=== PATIENT | male | born 1955 | race Hispanic/Latino ===

== ENCOUNTER 2022-09-26 14:00 | Emergency (ER) | payer OTHER, SELFPAY ==
[~2022-09-26] VITALS: Ht 167.6 cm; Wt 77.2 kg
[~2022-09-26 14:00] MED LIST: EZET-77 PO; SUCR1TAB2 PO
[2022-09-26 15:05] VITALS: BP 136/62
[2022-09-26] MEDS ORDERED: CEPH500B PO (16:47)
== END 2022-09-26 16:52 | disposition home or self-care (01) ==
LOC: EDH 14:00
DX: N49.2 Inflammatory disorders of scrotum (principal); E78.00 Pure hypercholesterolemia, unspecified
CPT/HCPCS: 76870

== ENCOUNTER 2025-07-08 08:33 | Inpatient (IN) | payer SELFPAY ==
[2025-07-08] VITALS (11 sets, daily range): BP systolic 93–154; BP diastolic 46–66; PULSE 44–86; RESP 16–20; TEMP 96.7–97.9; O2SAT 93–100
[~2025-07-08] VITALS: Ht 165.1 cm; Wt 44.2 kg
[~2025-07-08 08:33] MED LIST changes: +AMOX1TAB16 PO; +CHOL500051 PO; +CYAN1TAB68 SL; +DILT60TA3 PO; +DONE10TA43 PO; -EZET-77 PO; +FOLI0.4T6 PO; +MEMA10TA21 PO; +ROSU40TA88 PO; -SUCR1TAB2 PO; +THIA100T75 PO
[2025-07-08 09:20] LABS: IMMATURE GRANULOCYTE ABSOLUTE 0.04 K/uL (0-1); NUCLEATED RED BLOOD CELLS 0.0 % (0.0-0.19); PLATELET COUNT (AUTO) 237 K/uL (130-400); RED BLOOD CELL COUNT(AUTO) 4.53 MIL/uL (4.50-6.20); RED CELL DISTRIBUTION WIDTH 14.4 % (11.0-15.5); WHITE BLOOD COUNT (AUTO) 12.2 K/uL (4.8-10.8)
[2025-07-08 09:26] LABS: CREATININE 0.7 mg/dL (0.5-1.3); GLOMERULAR FILTR. RATE CALC 99.0 mL/min (>90); GLUCOSE,RANDOM 131.0 mg/dL (70-105); SODIUM SERUM 134.0 mmol/L (136-145); UREA NITROGEN, BLOOD 8.0 mg/dL (7-18)
[2025-07-08 09:30] LABS: ASPARTATE AMINOTRANSFERASE 25.0 U/L (10-37); CREATINE KINASE, TOTAL 55.0 U/L (21-232); TOTAL PROTEIN, SERUM 8.2 g/dL (6.0-8.3)
--- NOTE | 2025-07-08 09:35 | ERN ---
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 History was given by his daughter. Patient was brought to the ED with complaint of fever and congestion. He was noticed to have blood in sputum this morning. His symptoms began on June 25 and he was initially treated with Levaquin which transiently improved the symptoms. But patient became febrile again several days ago which was associated with productive cough and congestion. Severity: moderate Associated Symptoms: cough, fever/chills Allergies: Coded Allergies: No Known Allergies (Unverified Allergy, Unknown, 11/09/15) Home Meds Active Scripts Amoxicillin/Potassium Clav (Amox Tr-K Clv 875-125 mg Tab) 875 Mg-125 Mg Tablet, 1 EACH PO BID, #14 TAB Prov:MARBELLA HDZ MUSICAL INSTRUMENT MECHANIC 03/20/24 Diltiazem HCl (Diltiazem HCl) 60 Mg Tablet, 30 MG PO Q6H, #60 TAB Prov:MARBELLA HDZ MUSICAL INSTRUMENT MECHANIC 03/20/24 Reported Medications Rosuvastatin Calcium (Rosuvastatin Calcium) 40 Mg Tablet, 40 MG PO DAILY, TAB 03/18/24 Folic Acid (Folic Acid) 0.4 Mg Tablet, 1000 MCG PO DAILY, TAB 03/18/24 Memantine HCl (Memantine HCl) 10 Mg Tablet, 10 MG PO BID, TAB 03/18/24 Cyanocobalamin/Cobamamide (Vitamin B-12 5,000 Mcg Tab Sl) 5,000 Mcg-100 Mcg Tab.subl, 1 EACH SL DAILY, TAB.SL 03/18/24 Thiamine Mononitrate (Vitamin B-1) 100 Mg Tablet, 100 MG PO DAILY, TAB 03/18/24 Cholecalciferol (Vitamin D3) (Vitamin D3) 125 Mcg (5000 Unit) Capsule, 125 MCG PO QWEEK, CAP 03/18/24 Donepezil HCl (Donepezil HCl) 10 Mg Tablet, 10 MG PO DAILY, TAB 03/18/24 Past Medical History Past Medical History: Cancer, High Cholesterol Past Surgical History: Other Surgical History Other: PROSTATE SX Social History Social History: Other Constitutional: (+) fever, (+) malaise EENTM: (+) nose congestion Respiratory: (+) cough Cardiovascular: (-) chest pain, (-) edema, (-) palpitations, (-) syncope, (-) dyspnea on exertion, (-) other documentation Gastrointestinal/Abdominal: (+) constipation Genitourinary: (-) penile discharge, (-) dysuria, (-) frequency, (-) hematuria, (-) pain, (-) other documentation Musculoskeletal: (-) Neck pain, (-) back pain, (-) Flank Pain, (-) joint pain, (-) joint swelling, (-) muscle pain, (-) muscle stiffness, (-) gout, (-) other documentation Skin: (-) laceration, (-) contusion, (-) abrasion, (-) abscess, (-) rash, (-) change in color, (-) change in hair, (-) change in nails, (-) diaphoresis, (-) dryness, (-) other documentation Neuro: (-) altered mental status, (-) headache, (-) syncope, (-) paralysis, (-) numbness, (-) seizure, (-) pre-existing deficit, (-) tremors, (-) weakness, (-) dizziness, (-) slurred speech, (-) vertigo, (-) other documentation Psych: (-) depression, (-) suicidal ideation, (-) anxiety, (-) emotional problems, (-) auditory hallucinations, (-) visual hallucinations Physical Exam General Appearance: (+) no apparent distress, (+) thin Orientation: (+) alert, (+) oriented x 3 Ear, Nose, Throat: (+) normal ENT inspection Neck: (+) normal inspection, (+) supple, (+) full range of motion Respiratory: (+) chest non-tender, (+) decreased breath sounds Vascular: (+) no edema Gastrointestinal: (+) soft, (+) non-tender Extremities: (+) normal range of motion, (+) non-tender Skin: (+) normal color Results Laboratory and Microbiology Lab and Micro Result Laboratory Tests Test 07/08/25 08:50 07/08/25 09:22 07/08/25 09:36 White Blood Count 12.2 K/uL (4.8-10.8) H Red Blood Count 4.53 MIL/uL (4.50-6.20) Hemoglobin 14.2 g/dL (14.0-18.0) Hematocrit 42.4 % (42-54) Mean Corpuscular Volume 93.6 fL (79-99) Mean Corpuscular Hemoglobin 31.3 pg (27.0-33.0) Mean Corpuscular Hemoglobin Concent 33.5 g/dL (32.0-36.0) Red Cell Distribution Width 14.4 % (11.0-15.5) Platelet Count 237 K/uL (130-400) Mean Platelet Volume 10.5 fL (7.5-10.5) Immature Granulocyte % (Auto) 0.3 % (0-1) Neutrophils (%) (Auto) 79.6 % (40.0-77.0) H Lymphocytes (%) (Auto) 13.7 % (21.0-51.0) L Monocytes (%) (Auto) 6.0 % (3.0-13.0) Eosinophils (%) (Auto) 0.2 % (0.0-8.0) Basophils (%) (Auto) 0.2 % (0.0-5.0) Neutrophils # (Auto) 9.7 K/uL (1.8-7.7) H Lymphocytes # (Auto) 1.7 K/uL (1.0-4.8) Monocytes # (Auto) 0.7 K/uL (0.1-1.0) Eosinophils # (Auto) 0.03 K/uL (0.00-0.70) Basophils # (Auto) 0.02 K/uL (0.00-0.20) Absolute Immature Granulocyte (auto 0.04 K/uL (0-1) Nucleated Red Blood Cells 0.0 % (0.0-0.19) Sodium Level 134 mmol/L (136-145) L Potassium Level 3.6 mmol/L (3.5-5.1) Chloride Level 98 mmol/L (101-111) L Carbon Dioxide Level 30 mmol/L (21-32) Blood Urea Nitrogen 8 mg/dL (7-18) Creatinine 0.7 mg/dL (0.5-1.3) Glomerular Filtration Rate Calc 99 mL/min (>90) Random Glucose 131 mg/dL (70-105) H Lactic Acid Level 1.6 mmol/L (0.8-2.5) Total Calcium 9.6 mg/dL (8.5-10.1) Total Bilirubin 0.9 mg/dL (0.2-1.0) Aspartate Amino Transf (AST/SGOT) 25 U/L (10-37) Alanine Aminotransferase (ALT/SGPT) 33 U/L (12-78) Alkaline Phosphatase 125 U/L (50-136) Total Creatine Kinase 55 U/L (21-232) # Troponin I High Sensitivity 9 ng/L (4-75) B-Type Natriuretic Peptide 57 pg/mL (0-100) Total Protein 8.2 g/dL (6.0-8.3) Albumin 3.2 g/dL (3.5-5.0) L Procalcitonin 0.23 ng/mL (0.05-0.5) Influenza Type A Antigen Negative For Type A Influenza Type B Antigen Negative For Type B SARS-CoV-2 Antigen (Rapid) PRESUMPTIVE NEGATIVE Urine Color YELLOW (YELLOW) Urine Appearance CLOUDY (CLEAR) H Urine pH 7.0 (5.0-8.0) Urine Specific [place] 1.015 (1.001-1.031) Urine Protein NEGATIVE mg/dL (NEGATIVE) Urine Glucose (UA) NEGATIVE mg/dL (NEGATIVE) Urine Ketones NEGATIVE mg/dL (NEGATIVE) Urine Occult Blood MODERATE (NEGATIVE) H Urine Nitrate NEGATIVE (NEGATIVE) Urine Bilirubin NEGATIVE mg/dL (NEGATIVE) Urine Urobilinogen 0.2 mg/dL (0.2-1.0) Urine Leukocyte Esterase NEGATIVE Nicholas/uL Urine RBC 26-50 /HPF (0-1) H Urine WBC 2-5 /HPF (0-1) H Urine Bacteria RARE /HPF (None Seen) MDM Differential diagnosis: Complicated community-acquired pneumonia, aspiration pneumonia, lung abscess This patient is a 69-year-old gentleman who was brought to the ED with complaint of fever and congestion. He was noticed to have blood in sputum this morning. His symptoms began on June 25 and he was initially treated with Levaquin which transiently improved the symptoms. But patient became febrile again several days ago which was associated with productive cough and congestion. In the ED, chest x-ray was done which showed opacities in the left lung. It is being followed by CT chest without contrast. CBC with differential was taken which showed mild leukocytosis. Comprehensive metabolic panel was also taken. Procalcitonin and lactic acid were unremarkable. Trop I and BNP were negative. Urinalysis showed positive occult blood with negative leukocyte esterase. Blood culture sample has been drawn. Patient was started on sepsis protocol with 30 mL/kg normal saline. He was also started on cefepime and azithromycin for coverage of complicated community- acquired pneumonia with failed outpatient therapy. ED Course Orders Procedure Category Date Status Time Chest 1vw RAD 07/08/25 Resulted 08:52 Blood Cult MEHRDAD 07/08/25 In Process 08:52 B-Type Natriuretic LAB 07/08/25 Complete Peptide 08:52 Lactic Acid LAB 07/08/25 Complete 08:52 Procalcitonin LAB 07/08/25 Complete 08:52 Cbc With Differential LAB 07/08/25 Complete 08:52 Comprehensive LAB 07/08/25 Complete Metabolic Panel 08:52 Urinalysis Profile LAB 07/08/25 Complete 08:52 0.9%Nacl 1000ml (Ns PHA 07/08/25 In Process 1000ml) 09:00 Creatine Kinase, Total LAB 07/08/25 Complete 08:52 Troponin I High LAB 07/08/25 Complete Sensitivity 08:52 Covid19 (Sars Antigen LAB 07/08/25 Complete Rapid) 09:12 Influenza Type A & B, LAB 07/08/25 Complete Rapid 09:12 12 Lead Ekg Tracing- EKG 07/08/25 Complete Technical 09:14 Acetaminophen 500mg PHA 07/08/25 In Process Tab (Tylenol 500mg T 09:30 Ct Chest W/O Contrast CT 07/08/25 Resulted 09:43 Cefepime Hcl 1 Gm PHA 07/08/25 Complete Vial (Maxipime 1 Gm Vi 10:00 Azithromycin 500mg+Ns PHA 07/08/25 Complete 250ml (Azithromyci 11:00 Vital Signs(Adult CPOE 07/08/25 Transmitted Hospitalist) 10:54 Nurse To Enter Home CPOE 07/08/25 Transmitted Medication 10:54 Admit Orders ADM 07/08/25 Transmitted 10:54 Telemetry Monitoring CPOE 07/08/25 Transmitted 10:54 Nothing By Mouth DIET 07/08/25 Transmitted Lunch Famotidine 20mg Vial PHA 07/08/25 In Process (Pepcid 20mg Vial) 21:00 Zosyn 3.375gm+Ns 50ml PHA 07/08/25 In Process (Zosyn 3.375gm+Ns 13:00 0.9%Nacl 50ml (Ns PHA 07/08/25 Complete 50ml) 13:00 Procalcitonin LAB 07/08/25 Logged 10:54 Crp Quantitative LAB 07/08/25 Logged 10:54 Thyroid Stimulating LAB 07/08/25 Logged Hormone 10:54 Hemoglobin A1c LAB 07/08/25 Logged 10:54 *Nursing CPOE 07/08/25 Transmitted Communication: 10:[address] 07/08/25 Transmitted Order 10:54 Aspiration Precautions CPOE 07/08/25 Transmitted 10:54 Fall Precautions CPOE 07/08/25 Transmitted 10:54 Lactic Acid LAB 07/08/25 Logged 10:54 Midodrine Hcl 5 Mg PHA 07/08/25 Complete Tablet (Proamatine 5 11:00 Norepinephrin 4mg/Ns PHA 07/08/25 In Process 250ml (Levophed 4mg 11:00 Critcal Care Consult CONPHYSVC 07/08/25 Transmitted 10:54 Respiratory Cult MEHRDAD 07/08/25 Logged W/Gram Stain 10:54 Acetaminophen 500mg PHA 07/08/25 In Process Tab (Tylenol 500mg T 11:[address] 07/08/25 Transmitted Order 10:54 Transfer To: CPOE 07/08/25 Transmitted 11:02 Azithromycin 500mg+Ns PHA 07/09/25 In Process 250ml (Azithromyci 11:00 Current Medications Medications (Trade) Dose Ordered Sig/Sae Route PRN Reason Start Time Stop Time Status Last Admin Dose Admin Acetaminophen (TYLenol 500MG TAB) 500 mg Q6H PRN PO FEVER/HEADACHE 07/08/25 09:30 08/07/25 09:29 07/08/25 09:47 Acetaminophen (TYLenol 500MG TAB) 500 mg Q6H PRN PO MILD PAIN (1-3) 07/08/25 11:00 08/07/25 10:59 Azithromycin 250 ml @ 250 mls/hr Q24H IVPB 07/08/25 11:00 07/08/25 11:05 DC Azithromycin 250 ml @ 250 mls/hr Q24H IVPB 07/09/25 11:00 07/19/25 10:59 Cefepime HCl (MAXipime 1 GM vial) 1 gm Q12H IVPB 07/08/25 10:00 07/08/25 11:02 DC 07/08/25 10:29 Famotidine (Pepcid 20mg Vial) 20 mg BID IV 07/08/25 21:00 08/07/25 20:59 Midodrine (PROAMatine 5 MG TABLET) 5 mg ONCE ONCE PO 07/08/25 11:00 07/08/25 11:03 DC Norepinephrine 250 ml @ 21.45 mls/ hr PROTOCOL IV 07/08/25 11:00 08/07/25 10:59 Piperacillin Sod/ Tazobactam Sod (Zosyn 3.375gm+NS 50ml) 3.375 gm Q8H IVPB 07/08/25 13:00 07/18/25 12:59 Sodium Chloride 1,716 ml @ 572 mls/hr ONCE ONCE IV 07/08/25 09:00 07/08/25 11:59 07/08/25 09:47 Sodium Chloride (NS 50ml) 50 ml AD IV 07/08/25 13:00 07/08/25 11:02 DC Vital Signs Date Time Temp Pulse Resp B/P (MAP) Pulse Ox O2 Delivery O2 Flow Rate FiO2 07/08/25 09:47 100.0 07/08/25 08:52 100.0 97 20 107/84 95 Room Air* 0 21 07/08/25 08:35 98.4 52 16 102/43 95 Room Air DX & DISP Disposition: Inpatient Decision to Admit Date: Jul 08, 2025 Decision to Admit Time: 10:30 Departure Impression: Primary Impression: Community acquired pneumonia Condition: Stable Referrals: WES [facility]AV[facility] 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 I have reviewed and personally made and approve the management plan that is documented in the notes by myself with CHANA/resident. I acknowledged full responsibility for the patient's management plan. SHEILA GONZALEZ MD Jul 08, 2025 09:35 KWESI YAO DO Jul 08, 2025 11:08
[2025-07-08 09:47] LABS: COVID19 (SARS ANTIGEN RAPID) PRESUMPTIVE NEGATIVE (NEGATIVE); INFLUENZA TYPE A Negative For Type A (NEGATIVE); INFLUENZA TYPE B Negative For Type B (NEGATIVE)
[2025-07-08] MEDS: [UNRECOGNIZED DRUG - OTHER] IV ONE (09:47)
[2025-07-08 09:48] LABS: APPEARANCE,URINE CLOUDY (CLEAR); GLUCOSE, URINE (UA) NEGATIVE (NEGATIVE); LEUKOCYTE ESTERASE ,URINE NEGATIVE Leu/uL (NEGATIVE); NITRATE,URINE NEGATIVE (NEGATIVE); OCCULT BLOOD,URINE MODERATE (NEGATIVE)
--- NOTE | 2025-07-08 09:49 | EKG ---
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
[2025-07-08 09:53] LABS: ADD UA MICROSCOPIC YES
--- NOTE | 2025-07-08 10:38 | HMCIMG ---
EXAM: CT Chest Without IV contrast. CLINICAL HISTORY: Left lung opacities on chest x-ray TECHNIQUE: Axial computed tomography images of the chest without intravenous contrast. COMPARISON: None provided. FINDINGS: LUNGS: Tree-in-bud opacities throughout the right lung. Right lower lobe consolidations. Overall findings are suspicious for multifocal pneumonia. Follow-up chest radiograph in 6 weeks after appropriate clinical treatment recommended to ensure resolution. PLEURAL SPACES: No evidence of pneumothorax. No pleural effusion. HEART: No cardiomegaly. No significant pericardial effusion. LYMPH NODES: No lymphadenopathy is evident. UPPER ABDOMEN: The upper abdominal solid organs are unremarkable. BONES: No acute osseous abnormality. IMPRESSION: 1. Tree-in-bud opacities throughout the right lung and right lower lobe consolidations, suspicious for multifocal pneumonia. 2. Follow-up chest radiograph in 6 weeks after appropriate clinical treatment recommended to ensure resolution. /David
--- NOTE | 2025-07-08 10:41 | HMCIMG ---
EXAM: CR Chest, 1 View. CLINICAL HISTORY: Fever with Cough and congestion COMPARISON: 03/17/24 15:42 EDT CR - CHEST 1VW FINDINGS: LUNGS: Mild pulmonary emphysematous changes. There is asymmetric diffuse density throughout the left mid and lower lung when compared to the right which may represent an acute infectious process. PLEURAL SPACES: No pleural effusion or pneumothorax. MEDIASTINUM: Cardiac size and mediastinal contours within normal limits. BONES: No acute osseous abnormality. IMPRESSION: Pulmonary emphysema. Left lung asymmetric opacity which may acute infectious process. Clinically correlate. PA and lateral views of the chest or CT of the chest may provide additional diagnostic information. /[place]
[2025-07-08] MEDS ORDERED: AZITHROMYCIN 500MG+NS 250ML 250 ML IVPB SCH (11:00)
[2025-07-08] MEDS ORDERED: NOREPINEPHRIN 4MG/NS 250ML 250 ML IV SCH (11:00)
--- NOTE | 2025-07-08 11:03 | HP ---
[facility] HISTORY AND PHYSICAL Date of Service: Jul 08, 2025 Time of Service: 11:03 HISTORY OF PRESENT ILLNESS: 69-year-old Male with past medical history of dementia, hyperlipidemia presented to the hospital secondary to fever, congestion. History is mainly obtained from daughter who is present at bedside. Patient's daughter noted that she has been having cough for the past two weeks. He was seen by his primary care provider who treated him for pneumonia with Levaquin. The patient took Levaquin for the past seven days. The patient has been mostly drinking fluids at home. He is not eating solids much at home. Additionally he needs help with his eating. The patient has had progressive decline in his cognition and is being followed by Neurology as outpatient. He sees a neurologist in [facility] in [place]. The patient has episodes of aphasia at home and per daughter sometimes he is also able to speak. He has been having regular bowel movements at home but does have episodes of constipation. Daughter denied any diarrhea, chest pain, nausea, vomiting. Denied any falls, syncopal episode. History is limited since patient is not able to participate in conversations. Labs in the ED were notable for white count of 12.2, hemoglobin was 14.2, platelet count was 237 K, sodium was 134, potassium 3.6, was 0.7, blood glucose was 131, lactic acid was 1.6, troponin was negative x1 The patient underwent a CT chest which showed tree-in-bud opacities throughout the right lung and right lower lobe consolidation concerning for pneumonia. Patient's temperature on presentation was 98.1, heart rate was in the 50s, blood pressure was 124/66, patient was saturating 98% on room air, respiratory rate was 20 When seen at bedside patient's systolics were noted to be in the 90s with dailey tolic in the 30s. The patient's blood pressure subsequently improved with systolics in the 110s after fluid were given. Patient in the ED received cefepime, azithromycin. The patient also received normal saline for fluid bolus REVIEW OF SYSTEMS CONSTITUTIONAL: Denies chills, or night sweats. No unintentional weight loss reported. Positive fevers NEUROLOGICAL: Denies headache, amaurosis fugax, motor weakness, sensory deficit, vertigo/spinning sensation, gait abnormalities, or tremors. ENT: No hearing loss, otalgia, otorrhea, rhinitis, rhinorrhea, hoarseness, or sore throat. CARDIOVASCULAR: Denies any exertional angina, dyspnea on exertion, orthopnea, paroxysmal nocturnal dyspnea, palpitations, life-threatening arrhythmias, claudication. PULMONARY: Positive for cough, congestion GASTROINTESTINAL: Denies any type of dysphagia to either liquids or solids. Denies nausea, vomiting, pyrosis, early satiety, abdominal pain, diarrhea, constipation, or changes in stool consistency or caliber. Denies coffee-ground emesis, hematemesis, hematochezia, or melanotic stools. GENITOURINARY: Denies frequency, urgency, nocturia, hematuria or incontinence (Storage/Irritative symptoms.) Low urinary stream, straining to void, urinary intermittency or hesitancy, splitting of the voiding stream, terminal dribbling. ENDOCRINOLOGIC: Denies polyuria, polydipsia, polyphagia or heat/cold intolerances. HEMATOLOGIC: Denies thrombophilia/previous clots, or coagulopathy/bleeding disorders. ONCOLOGIC: Denies personal history of malignancy. DERMATOLOGIC: Denies rashes or pruritus. PSYCHIATRIC: Denies any suicidal or homicidal ideation. Denies hallucinations. PAST MEDICAL HISTORY: Hyperlipidemia, dementia, possible prostate cancer PAST SURGICAL HISTORY: History of prostate surgery PAST SOCIAL HISTORY: Denied any smoking, alcohol, drug use. The patient currently lives with his family is who helps him with his ADLs and IADLs FAMILY HISTORY: Denied any pertinent family history Coded Allergies: No Known Allergies (Unverified Allergy, Unknown, 11/09/15) PHYSICAL EXAM GENERAL APPEARANCE: Patient is aphasic. Does not communicate NEUROLOGICAL: Does not follow commands for accurate neurological assessment. Patient does move his upper and lower extremity without issues. HEENT: Face is symmetric. Pupils are equal and reactive. Extraocular movements are intact. NECK: Supple. No JVD. No thyromegaly. No submental, submandibular, pre-/postauricular, occipital or supraclavicular lymphadenopathy. CHEST: Normal chest expansion. No Telemetry. LUNGS: Absence of any rales, rhonchi or any wheezing. CARDIOVASCULAR: Regular. S1 and S2 normal. No appreciable rubs, murmurs or gallops. ABDOMEN: Soft, nontender, and nondistended. There is no rebound, voluntary guarding, or rigidity. : Deferred. No Aguilar. EXTREMITIES: Non-edematous and not cyanotic. No clubbing. Good capillary refill. SKIN: No skin breakdown. Vital Sign (Last 24 Hours) 07/08/25 07/08/25 08:52 09:47 Temp 100.0 Pulse 97 Resp 20 B/P (MAP) 107/84 Pulse Ox 95 O2 Delivery Room Air* O2 Flow Rate 0 FiO2 21 LABS: Laboratory: Test 07/08/25 09:36 07/08/25 09:22 07/08/25 08:50 Range/Units Urine Color YELLOW YELLOW Urine Appearance CLOUDY H CLEAR Urine pH 7.0 5.0-8.0 Urine Specific [place] 1.015 1.001-1.031 Urine Protein NEGATIVE NEGATIVE mg/dL Urine Glucose (UA) NEGATIVE NEGATIVE mg/dL Urine Ketones NEGATIVE NEGATIVE mg/dL Urine Occult Blood MODERATE H NEGATIVE Urine Nitrate NEGATIVE NEGATIVE Urine Bilirubin NEGATIVE NEGATIVE mg/dL Urine Urobilinogen 0.2 0.2-1.0 mg/dL Urine Leukocyte Esterase NEGATIVE NEGATIVE Nicholas/uL Urine RBC 26-50 H 0-1 /HPF Urine WBC 2-5 H 0-1 /HPF Urine Bacteria RARE None Seen /HPF Influenza Type A Antigen Negative For Type A NEGATIVE Influenza Type B Antigen Negative For Type B NEGATIVE SARS-CoV-2 Antigen (Rapid) PRESUMPTIVE NEGATIVE NEGATIVE White Blood Count 12.2 H 4.8-10.8 K/uL Red Blood Count 4.53 4.50-6.20 MIL/uL Hemoglobin 14.2 14.0-18.0 g/dL Hematocrit 42.4 42-54 % Mean Corpuscular Volume 93.6 79-99 fL Mean Corpuscular Hemoglobin 31.3 27.0-33.0 pg Mean Corpuscular Hemoglobin Concent 33.5 32.0-36.0 g/dL Red Cell Distribution Width 14.4 11.0-15.5 % Platelet Count 237 130-400 K/uL Mean Platelet Volume 10.5 7.5-10.5 fL Immature Granulocyte % (Auto) 0.3 0-1 % Neutrophils (%) (Auto) 79.6 H 40.0-77.0 % Lymphocytes (%) (Auto) 13.7 L 21.0-51.0 % Monocytes (%) (Auto) 6.0 3.0-13.0 % Eosinophils (%) (Auto) 0.2 0.0-8.0 % Basophils (%) (Auto) 0.2 0.0-5.0 % Neutrophils # (Auto) 9.7 H 1.8-7.7 K/uL Lymphocytes # (Auto) 1.7 1.0-4.8 K/uL Monocytes # (Auto) 0.7 0.1-1.0 K/uL Eosinophils # (Auto) 0.03 0.00-0.70 K/uL Basophils # (Auto) 0.02 0.00-0.20 K/uL Absolute Immature Granulocyte (auto 0.04 0-1 K/uL Nucleated Red Blood Cells 0.0 0.0-0.19 % Sodium Level 134 L 136-145 mmol/L Potassium Level 3.6 3.5-5.1 mmol/L Chloride Level 98 L 101-111 mmol/L Carbon Dioxide Level 30 21-32 mmol/L Blood Urea Nitrogen 8 7-18 mg/dL Creatinine 0.7 0.5-1.3 mg/dL Glomerular Filtration Rate Calc 99 >90 mL/min Random Glucose 131 H 70-105 mg/dL Lactic Acid Level 1.6 0.8-2.5 mmol/L Total Calcium 9.6 8.5-10.1 mg/dL Total Bilirubin 0.9 0.2-1.0 mg/dL Aspartate Amino Transf (AST/SGOT) 25 10-37 U/L Alanine Aminotransferase (ALT/SGPT) 33 12-78 U/L Alkaline Phosphatase 125 50-136 U/L Total Creatine Kinase 55 # 21-232 U/L Troponin I High Sensitivity 9 4-75 ng/L B-Type Natriuretic Peptide 57 0-100 pg/mL Total Protein 8.2 6.0-8.3 g/dL Albumin 3.2 L 3.5-5.0 g/dL Procalcitonin 0.23 0.05-0.5 ng/mL Current Medications Medications (Trade) Dose Ordered Sig/Sae Route PRN Reason Start Time Stop Time Status Last Admin Dose Admin Acetaminophen (TYLenol 500MG TAB) 500 mg Q6H PRN PO FEVER/HEADACHE 07/08/25 09:30 08/07/25 09:29 07/08/25 09:47 500 MG Azithromycin 250 ml @ 250 mls/hr Q24H IVPB 07/08/25 11:00 07/18/25 10:59 Cefepime HCl (MAXipime 1 GM vial) 1 gm Q12H IVPB 07/08/25 10:00 07/18/25 09:59 07/08/25 10:29 1 GM DIAGNOSTICS / RADIOLOGY: Chest is concerning for right lower lobe pneumonia ASSESSMENT: Nonresolving multifocal pneumonia in the right lung concerning for aspiration pneumonia Advanced dementia Debility Dehydration Hyperlipidemia History of prostate cancer Hypotension resolved PLAN: - patient to be admitted to [facility] -in reference to nonresolving right lower lobe pneumonia. Patient will be started on Zosyn and azithromycin. We will obtain a sputum sample. We will obtain a speech eval to assess for dysphagia. We will request consultation with pulmonology for help with management. Monitor blood pressure. The patient's case was discussed with pulmonology. -patient to be started on NS for gentle hydration -check for Legionella, Streptococcus pneumoniae, mycoplasma -check procalcitonin, CRP, TSH, hemoglobin A1c -obtain a CT head -obtain home medications which will be reconciled once available -further orders per hospitalization course. Plan Of care was discussed with patient's daughter at bedside. Advanced Care Planning Which of the following were discussed: Hospice care: Yes __ No _x_ Therapeutic options: Yes __ No __ Advance directives: Yes __ No __ Other discussions: Pt is full code Discussed with who?: patient's daughter (Patient, family or surrogates) Voluntary nature of this service was explained to the patient? Yes _x_ No __ Amount of time spent: 25 minutes DADA Bass MD, MD Jul 08, 2025 11:03
[2025-07-08] MEDS: SODIUM CHLORIDE 3% FOR INHALATION 4 ML/AMP VIAL.NEB IH ONE ×3 (11:41→23:13)
--- NOTE | 2025-07-08 12:05 | HMCIMG ---
ABD 1VW REASON: CONSTIPATION FINDINGS: Single image of the abdomen was obtained. Bowel gas pattern is normal. Bones and soft tissues appear unremarkable. There are no abnormal calcifications. There is no evidence of foreign body. There is atherosclerotic change of the abdominal aorta with calcified plaque. IMPRESSION: 1. Nonspecific gas pattern..
[2025-07-08] MEDS: 0.9%NACL 1000ML 1,000 ML IV SCH (12:08)
--- NOTE | 2025-07-08 12:15 | HMCIMG ---
Exam: NONCONTRAST CT BRAIN REASON: confusion, history of dementia . COMPARISON: None. TECHNIQUE: Images are obtained from vertex to the skull base. The exam was performed without IV contrast. FINDINGS: There is normal appearing brain parenchyma. There are no focal mass lesions. There is is no evidence of intracranial hemorrhage or acute stroke. Ventricles and sulci appear normal. Posterior fossa and brainstem structures are unremarkable. Paranasal sinuses and remaining extracranial soft tissues appear normal as well.There is severe global atrophy with periventricular ischemic white matter changes. IMPRESSION: 1. No acute intracranial process. 2. Global atrophy with periventricular ischemic white matter changes CT was performed with one or more following dose reduction techniques: automated exposure control, adjustment of the mA and kv according to patient's size, or use of a iterative reconstruction technique.
[2025-07-08] MEDS ORDERED: MIRT-72 PO (12:25)
--- NOTE | 2025-07-08 12:35 | CONS ---
[facility] CONSULTATION NOTE Date Patient Seen: Jul 08, 2025 Time of Visit: 12:19 Supervising Physician: [Dr. Barbara Klein Reason for Consultation: [ ] Recurrent pneumonia Primary Care Physician: [[facility] Out[facility] Specialists: [ ] Inpatient Consults: [ ] BIS PROBLEM LIST: Recurrent multifocal pneumonia-failed out patient treatment Advanced dementia Hyperlipidemia Calorie deficit malnutrition Nonverbal Functional quad Bed-bound PLAN SUMMARY: Supplemental oxygen as needed Duo nebs every 6 hours as needed Mucomyst 20% 3 mL q 6 x 72 hours Obtain sputum culture Continue Zosyn Continue azithromycin Continue NS at 100 mL an hour Keep NPO ST to evaluate and treat MBSS if warranted Palliative care consult HPI: Mr. Alireza Pineda is a 69 year old male with a past medical history of dementia, hyperlipidemia presented to the emergency room with a chief complaint of fevers, congestion with an onset of several days. Daughter reports she has been having these symptoms for over2 weeks and was evaluated by his primary care provider and diagnosed and treated him for pneumonia with p.o. Levaquin. Daughter reports he was compliant with his oral antibiotics and completed the regimen however his symptoms continued. Patient's daughter reports his cough and fevers progressively worsened therefore she brought him in for further evaluation. The patient has been mostly drinking fluids at home. He is not eating solids much at home. Additionally he needs help with his eating. The patient has had progressive decline in his cognition and is being followed by Neurology as outpatient. He sees a neurologist in [facility] in [place]. The patient has episodes of aphasia at home and per daughter sometimes he is also able to speak. He has been having regular bowel movements at home but does have episodes of constipation. Daughter denied any diarrhea, chest pain, nausea, vomiting. Denied any falls, syncopal episode. History is limited since patient is not able to participate in conversations. Patient is seen laying in his stretcher in the ED accompanied by his daughter. Pt appears to be very weak, frail, ill appearing, debilitated and cachectic. CT scan of the chest was reviewed and shows multifocal pneumonia. Recommend blanquita nue Zosyn 3.375 g IV every 8 hours as well as azithromycin. We will instruct nursing to arrange aggressive pulmonary tolerating. Recommend keep NPO until evaluated by speech therapy and is deemed safe for intake. Discussed code status with the daughter and she reports she will need to confirm with the family however she is leaning towards duo neb resuscitate which I believe is a ppropriate at this time. Recommend palliative care consult. No need for ICU at this time. We will continue to follow up with you. PAST MEDICAL HX: see above PAST SURGICAL HX: noncontributory SOCIAL HISTORY: No tobacco, ETOH, or illicit drug use Coded Allergies: No Known Allergies (Unverified Allergy, Unknown, 11/09/15) REVIEW OF SYSTEMS: 12 point ROS reviewed with patient. Pertinent positives mentioned above. Otherwise negative. PHYSICAL EXAM: GENERAL: 69-year-old weak, cachectic, ill-appearing male awake oriented x 1 HEENT: EOMI, Sclera non icteric, moist mucosa NECK: Supple, no JVD, trachea midline LUNGS: Clear breath sounds bilaterally. No wheezes HEART: Regular rate and rhythm. Normal S1 and S2, without murmurs ABD: Abdomen soft, nontender. Bowel sounds present EXT: No clubbing cyanosis or edema NEURO: Alert and oriented to person, does not follow commands Vital Signs (last 8hr) Date Time Temp Pulse Resp B/P (MAP) Pulse Ox O2 Delivery O2 Flow Rate FiO2 07/08/25 09:47 100.0 07/08/25 08:52 100.0 97 20 107/84 95 Room Air* 0 21 07/08/25 08:35 98.4 52 16 102/43 95 Room Air LABS: Hematology Labs: Test 07/08/25 08:50 Range/Units White Blood Count 12.2 H 4.8-10.8 K/uL Red Blood Count 4.53 4.50-6.20 MIL/uL Hemoglobin 14.2 14.0-18.0 g/dL Hematocrit 42.4 42-54 % Mean Corpuscular Volume 93.6 79-99 fL Mean Corpuscular Hemoglobin 31.3 27.0-33.0 pg Mean Corpuscular Hemoglobin Concent 33.5 32.0-36.0 g/dL Red Cell Distribution Width 14.4 11.0-15.5 % Platelet Count 237 130-400 K/uL Mean Platelet Volume 10.5 7.5-10.5 fL Immature Granulocyte % (Auto) 0.3 0-1 % Neutrophils (%) (Auto) 79.6 H 40.0-77.0 % Lymphocytes (%) (Auto) 13.7 L 21.0-51.0 % Monocytes (%) (Auto) 6.0 3.0-13.0 % Eosinophils (%) (Auto) 0.2 0.0-8.0 % Basophils (%) (Auto) 0.2 0.0-5.0 % Neutrophils # (Auto) 9.7 H 1.8-7.7 K/uL Lymphocytes # (Auto) 1.7 1.0-4.8 K/uL Monocytes # (Auto) 0.7 0.1-1.0 K/uL Eosinophils # (Auto) 0.03 0.00-0.70 K/uL Basophils # (Auto) 0.02 0.00-0.20 K/uL Absolute Immature Granulocyte (auto 0.04 0-1 K/uL Nucleated Red Blood Cells 0.0 0.0-0.19 % Chemistry Labs: Test 07/08/25 11:52 07/08/25 08:50 Range/Units Lactic Acid Level 1.4 0.8-2.5 mmol/L Sodium Level 134 L 136-145 mmol/L Potassium Level 3.6 3.5-5.1 mmol/L Chloride Level 98 L 101-111 mmol/L Carbon Dioxide Level 30 21-32 mmol/L Blood Urea Nitrogen 8 7-18 mg/dL Creatinine 0.7 0.5-1.3 mg/dL Glomerular Filtration Rate Calc 99 >90 mL/min Random Glucose 131 H 70-105 mg/dL Hemoglobin A1c 5.1 4.0-6.0 % Estimated Average Glucose (eAG) 100 70-126 mg/dL Total Calcium 9.6 8.5-10.1 mg/dL Total Bilirubin 0.9 0.2-1.0 mg/dL Aspartate Amino Transf (AST/SGOT) 25 10-37 U/L Alanine Aminotransferase (ALT/SGPT) 33 12-78 U/L Alkaline Phosphatase 125 50-136 U/L Total Creatine Kinase 55 # 21-232 U/L Troponin I High Sensitivity 9 4-75 ng/L B-Type Natriuretic Peptide 57 0-100 pg/mL Total Protein 8.2 6.0-8.3 g/dL Albumin 3.2 L 3.5-5.0 g/dL Procalcitonin 0.23 0.05-0.5 ng/mL DIAGNOSTICS / RADIOLOGY RESULTS: PATIENT: ALIREZA PINEDA MR#: [id number] : 1955 SEX: M AGE: 69 LOCATION: [facility] ORDER 4 STATUS: REG ER REPORT#: [id number] SERVICE REASON: Left lung opacities on chest x-ray ORDERING PHYSICIAN: SHEILA GONZALEZ MD PROCEDURE: CHEST WO - CT CHEST W/O CONTRAST EXAM: CT Chest Without IV contrast. CLINICAL HISTORY: Left lung opacities on chest x-ray TECHNIQUE: Axial computed tomography images of the chest without intravenous contrast. COMPARISON: None provided. FINDINGS: LUNGS: Tree-in-bud opacities throughout the right lung. Right lower lobe consolidations. Overall findings are suspicious for multifocal pneumonia. Follow-up chest radiograph in 6 weeks after appropriate clinical treatment recommended to ensure resolution. PLEURAL SPACES: No evidence of pneumothorax. No pleural effusion. HEART: No cardiomegaly. No significant pericardial effusion. LYMPH NODES: No lymphadenopathy is evident. UPPER ABDOMEN: The upper abdominal solid organs are unremarkable. BONES: No acute osseous abnormality. IMPRESSION: 1. Tree-in-bud opacities throughout the right lung and right lower lobe consolidations, suspicious for multifocal pneumonia. 2. Follow-up chest radiograph in 6 weeks after appropriate clinical treatment recommended to ensure resolution. /[place] DICTATED BY: THERESE WINN MD DATE: 07/08/251136 ELECTRONICALLY SIGNED BY: THERESE WINN MD DATE: 07/08/251136 PLAN NEURO: Minimize central acting medications as possible. Maintain fall precautions, adequate lighting during the day PULMONARY: Supplemental 02 as needed. Maintain aspiration precautions at all times CARDIOVASCULAR: Follow hemodynamics. Vital signs per facility protocol GI & NUTRITION: Continue with nutritional support. Continue stool softeners and laxatives as needed. KIDNEYS & ELECTROLYTES: Strict monitoring of intake, output and overall fluid balance. Avoid nephrotoxic medications to the extent possible. Medications to be dosed according to renal function. Monitor electrolytes and replace as needed ENDOCRINE: Maintain blood glucose between 100-180 at all times. Hypoglycemia protocol in place INFECTIOUS DISEASE: Trend temperature, WBC and procalcitonin level Follow cultures, deescalate antibiotics as soon as possible. Panculture if new onset fever ONCOLOGY/HEMATOLOGY/COAGULATION: Monitor for s/s of bleeding Monitor hemoglobin, coagulation studies as needed SKIN: Pressure ulcer prevention per facility protocol Specialty mattress ORTHO/REHAB: Continue PT/OT Prophylaxis: Continue GI and DVT prophylaxis Code Status: Full Resuscitation. Palliative care consult Disposition: As per attending ATTESTATION BY PHYSICIAN The patient has been seen and evaluated, the case has been discussed with the ELECTRIC CUTTER OPERATOR, I agree with the clinical findings and plan of care. Reynaldo Klein MD,SAL N ELECTRIC CUTTER OPERATOR Jul 08, 2025 12:35
[2025-07-08] MEDS ORDERED: 0.9%NACL 50ML IV SCH (13:00)
--- NOTE | 2025-07-08 13:06 | NUR ---
ATTEMPTED TO CALL REPORT AT THIS TIME; NURSE IS CURRENTLY OUT IN LUNCH.
[2025-07-08] MEDS: ZOSYN 3.375GM +NS 50ML IVPB SCH (15:14)
--- NOTE | 2025-07-08 15:57 | NUR ---
DCP: HOME Pt sleeping, sw spoke to son and daughter in law. Pt lives in mobile home with Ainsley Nayak [phone]. Family assists pt with completing his ADLS as needed, pt uses walker and shower chair. Pt has no HH or HD, family drives to MD appts as needed. PCP is Venus Davenport and uses [facility] for rx services. DCP is home Addendum: 07/08/25 at 1601 by ANGÉLICA GOMEZ SS Amended: Links added.
--- NOTE | 2025-07-08 16:00 | NUR ---
SPEECH NOTE: Pt not appropriate ROUGH RIB GRADER arrived to patient's room; however, patient unable to wake up to participate in evaluation. As per family in room, patient was not able to sleep until now. ROUGH RIB GRADER educated family on risks and consequences of aspiration. ROUGH RIB GRADER will follow up tomorrow. All questions answered. Addendum: 07/08/[address] J[facility] HOLLIS Amended: Links added.
[2025-07-08] MEDS ORDERED: GLUCAGON 1MG KIT 1 MG ML IM PRN (18:30)
[2025-07-08] MEDS ORDERED: DEXTROSE 50%-WATER 50 ML DISP.SYRIN IV PRN (18:30)
--- NOTE | 2025-07-08 18:41 | EKG ---
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
[2025-07-08] MEDS: DEXTROSE 5 % AND 0.9 % NACL 1,000 ML IV SCH (18:53)
--- NOTE | 2025-07-08 20:06 | NUR ---
patient started with afib rvr 130-140 s at @ 1955 paged benchmark answering service not answering will attempt later
[2025-07-08] MEDS: FAMOTIDINE 20MG VIAL IV SCH (21:17)
--- NOTE | 2025-07-08 22:52 | NUR ---
2051 - NABI HANDBOOK WRITER CALLED BACK PT WAS IN AFIB RVR 120-140S SINCE 1944 - CONVERTED TO SINUS NATALI AT 2030 - EKG WAS ABOUT TO BE DONE, NABI CANCELED AND NO ORDERS CONT TO MONITOR, PT IN ED CALM AND PASSIVE AT BEDSIDE IN NO DISTRESS
[2025-07-09] VITALS (15 sets, daily range): BP systolic 111–144; BP diastolic 51–99; PULSE 43–94; RESP 16–19; TEMP 97.3–100.1; O2SAT 98–99
[2025-07-09 05:55] LABS: NUCLEATED RED BLOOD CELLS 0.0 % (0.0-0.19); PLATELET COUNT (AUTO) 171.0 K/uL (130-400); RED BLOOD CELL COUNT(AUTO) 3.96 MIL/uL (4.50-6.20); RED CELL DISTRIBUTION WIDTH 14.6 % (11.0-15.5); WHITE BLOOD COUNT (AUTO) 7.4 K/uL (4.8-10.8)
[2025-07-09 06:12] LABS: CREATININE 0.6 mg/dL (0.5-1.3); GLOMERULAR FILTR. RATE CALC 104.0 mL/min (>90); GLUCOSE,RANDOM 99.0 mg/dL (70-105); PHOSPHORUS 2.6 mg/dL (2.5-4.9); SODIUM SERUM 142.0 mmol/L (136-145); UREA NITROGEN, BLOOD 7.0 mg/dL (7-18)
[2025-07-09] MEDS ORDERED: PoTASSium chloRIDE 20MEQ ER 20 MEQ ERTAB PO PRN (06:30)
[2025-07-09] MEDS: ENOXAPARIN SODIUM 30 MG/0.3 ML SQ SCH (08:52)
[2025-07-09] MEDS ORDERED: COMPOUND IV REFRIGERATED 1 EACH IVSOLN MISC PRN (10:00)
--- NOTE | 2025-07-09 10:24 | PN ---
[facility] PROGRESS NOTE Date of Service: Jul 09, 2025 Time of Service: 10:20 SUBJECTIVE: 07/09 the patient has been seen and examined at bedside, case discussed with the RN, no acute events overnight, patient has been admitted to the PCU, the time of my visit the patient resting comfortably in bed, the patient looks malnourished, extremely weak and debilitated, he is getting broad-spectrum IV antibiotics as well as supplemental oxygen via nasal cannula at 3 L, he is currently saturating between 94-98%. BP 111/51. Leukocytosis resolved, WBC today 7.4, hemoglobin 12.4, hematocrit 37.6, with a platelet count of 171, sodium 142, potassium 3.1, BUN of seven, creatinine 0.6, magnesium level of 2.0, procalcitonin 0/19. Serology test to include influenza and SARS antigen are negative. Chest CT tree-in-bud opacities throughout right lung and right lower lobe consultation suspicious for multifocal pneumoniae. Head CT no acute intracranial process, global atrophy with periventricular ischemic white matter changes. X-ray of the abdomen nonspecific gas pattern. Pulmonary consultation requested, we will follow input and recommendation. We will keep the patient on broad-spectrum antibiotics with azithromycin and Zosyn IV, we will check for Streptococcus pneumoniae antigen as well as Legionella antigen. Follow rapid strep. We will start the patient on banana bag for nutritional support. Advanced directive discussed with the was at the bedside as well as the son, they have also spoken with the the patient's daughter, patient has been made DNR/DNI, okay with blood transfusion, no for feeding tubes or the hemodialysis. Prognosis of the patient is guarded. REVIEW OF SYSTEMS CONSTITUTIONAL: Denies chills, or night sweats. No unintentional weight loss reported. Positive fevers NEUROLOGICAL: Denies headache, amaurosis fugax, motor weakness, sensory deficit, vertigo/spinning sensation, gait abnormalities, or tremors. ENT: No hearing loss, otalgia, otorrhea, rhinitis, rhinorrhea, hoarseness, or sore throat. CARDIOVASCULAR: Denies any exertional angina, dyspnea on exertion, orthopnea, paroxysmal nocturnal dyspnea, palpitations, life-threatening arrhythmias, claudication. PULMONARY: Positive for cough, congestion GASTROINTESTINAL: Denies any type of dysphagia to either liquids or solids. Denies nausea, vomiting, pyrosis, early satiety, abdominal pain, diarrhea, constipation, or changes in stool consistency or caliber. Denies coffee-ground emesis, hematemesis, hematochezia, or melanotic stools. GENITOURINARY: Denies frequency, urgency, nocturia, hematuria or incontinence (Storage/Irritative symptoms.) Low urinary stream, straining to void, urinary intermittency or hesitancy, splitting of the voiding stream, terminal dribbling. ENDOCRINOLOGIC: Denies polyuria, polydipsia, polyphagia or heat/cold intoler ances. HEMATOLOGIC: Denies thrombophilia/previous clots, or coagulopathy/bleeding disorders. ONCOLOGIC: Denies personal history of malignancy. DERMATOLOGIC: Denies rashes or pruritus. PSYCHIATRIC: Denies any suicidal or homicidal ideation. Denies hallucinations. PHYSICAL EXAM GENERAL APPEARANCE: Patient is aphasic. Does not communicate. Looks very malnourished. NEUROLOGICAL: Does not follow commands for accurate neurological assessment. Patient does move his upper and lower extremity without issues. HEENT: Face is symmetric. Pupils are equal and reactive. Extraocular movements are intact. NECK: Supple. No JVD. No thyromegaly. No submental, submandibular, pre- /postauricular, occipital or supraclavicular lymphadenopathy. CHEST: Normal chest expansion. No Telemetry. LUNGS: Absence of any rales, rhonchi or any wheezing. CARDIOVASCULAR: Regular. S1 and S2 normal. No appreciable rubs, murmurs or gallops. ABDOMEN: Soft, nontender, and nondistended. There is no rebound, voluntary guarding, or rigidity. : Deferred. No Aguilar. EXTREMITIES: Non-edematous and not cyanotic. No clubbing. Good capillary refill. SKIN: No skin breakdown. Vital Signs (last 8hr) Date Time Temp Pulse Resp B/P (MAP) Pulse Ox O2 Delivery O2 Flow Rate FiO2 07/09/25 08:00 98.4 94 19 111/51 94 Nasal Cannula 3.0 07/09/25 07:40 98 Nasal Cannula* 2 28 07/09/25 06:19 67 18 07/09/25 06:18 67 18 N/Cannula Low lpm 3.0 32 07/09/25 04:08 97.7 57 16 111/56 100 Nasal Cannula 2.0 LABS: Laboratory: Test 07/09/25 05:45 07/09/25 05:05 07/08/25 11:52 07/08/25 09:36 Range/Units White Blood Count 7.4 # 4.8-10.8 K/uL Red Blood Count 3.96 L 4.50-6.20 MIL/uL Hemoglobin 12.4 L 14.0-18.0 g/dL Hematocrit 37.6 L 42-54 % Mean Corpuscular Volume 94.9 79-99 fL Mean Corpuscular Hemoglobin 31.3 27.0-33.0 pg Mean Corpuscular Hemoglobin Concent 33.0 32.0-36.0 g/dL Red Cell Distribution Width 14.6 11.0-15.5 % Platelet Count 171 # 130-400 K/uL Mean Platelet Volume 10.1 7.5-10.5 fL Nucleated Red Blood Cells 0.0 0.0-0.19 % Sodium Level 142 136-145 mmol/L Potassium Level 3.1 L 3.5-5.1 mmol/L Chloride Level 107 101-111 mmol/L Carbon Dioxide Level 31 21-32 mmol/L Blood Urea Nitrogen 7 7-18 mg/dL Creatinine 0.6 0.5-1.3 mg/dL Glomerular Filtration Rate Calc 104 >90 mL/min Random Glucose 99 70-105 mg/dL Total Calcium 8.7 8.5-10.1 mg/dL Phosphorus Level 2.6 2.5-4.9 mg/dL Magnesium Level 2.00 1.80-2.40 mg/dL Whole Blood Glucose 87 70-110 MG/DL Lactic Acid Level 1.4 0.8-2.5 mmol/L C-Reactive Protein, Quantitative 136.10 H 0.5-3.0 mg/L Procalcitonin 0.19 0.05-0.5 ng/mL Thyroid Stimulating Hormone (TSH) 2.30 0.36-3.74 uIU/mL Urine Color YELLOW YELLOW Urine Appearance CLOUDY H CLEAR Urine pH 7.0 5.0-8.0 Urine Specific [place] 1.015 1.001-1.031 Urine Protein NEGATIVE NEGATIVE mg/dL Urine Glucose (UA) NEGATIVE NEGATIVE mg/dL Urine Ketones NEGATIVE NEGATIVE mg/dL Urine Occult Blood MODERATE H NEGATIVE Urine Nitrate NEGATIVE NEGATIVE Urine Bilirubin NEGATIVE NEGATIVE mg/dL Urine Urobilinogen 0.2 0.2-1.0 mg/dL Urine Leukocyte Esterase NEGATIVE NEGATIVE Nicholas/uL Urine RBC 26-50 H 0-1 /HPF Urine WBC 2-5 H 0-1 /HPF Urine Bacteria RARE None Seen /HPF Test 07/08/25 09:22 07/08/25 08:50 Range/Units Influenza Type A Antigen Negative For Type A NEGATIVE Influenza Type B Antigen Negative For Type B NEGATIVE SARS-CoV-2 Antigen (Rapid) PRESUMPTIVE NEGATIVE NEGATIVE Immature Granulocyte % (Auto) 0.3 0-1 % Neutrophils (%) (Auto) 79.6 H 40.0-77.0 % Lymphocytes (%) (Auto) 13.7 L 21.0-51.0 % Monocytes (%) (Auto) 6.0 3.0-13.0 % Eosinophils (%) (Auto) 0.2 0.0-8.0 % Basophils (%) (Auto) 0.2 0.0-5.0 % Neutrophils # (Auto) 9.7 H 1.8-7.7 K/uL Lymphocytes # (Auto) 1.7 1.0-4.8 K/uL Monocytes # (Auto) 0.7 0.1-1.0 K/uL Eosinophils # (Auto) 0.03 0.00-0.70 K/uL Basophils # (Auto) 0.02 0.00-0.20 K/uL Absolute Immature Granulocyte (auto 0.04 0-1 K/uL D-Dimer Quantitative (PE/DVT) 2023 *H 0-500 ng/mL Hemoglobin A1c 5.1 4.0-6.0 % Estimated Average Glucose (eAG) 100 70-126 mg/dL Total Bilirubin 0.9 0.2-1.0 mg/dL Aspartate Amino Transf (AST/SGOT) 25 10-37 U/L Alanine Aminotransferase (ALT/SGPT) 33 12-78 U/L Alkaline Phosphatase 125 50-136 U/L Total Creatine Kinase 55 # 21-232 U/L Troponin I High Sensitivity 9 4-75 ng/L B-Type Natriuretic Peptide 57 0-100 pg/mL Total Protein 8.2 6.0-8.3 g/dL Albumin 3.2 L 3.5-5.0 g/dL Current Medications Medications (Trade) Dose Ordered Sig/Sae Route PRN Reason Start Time Stop Time Status Last Admin Dose Admin Acetaminophen (TYLenol 500MG TAB) 500 mg Q6H PRN PO FEVER/HEADACHE 07/08/25 09:30 08/07/25 09:29 07/08/25 09:47 500 MG Acetaminophen (TYLenol 500MG TAB) 500 mg Q6H PRN PO MILD PAIN (1-3) 07/08/25 11:00 08/07/25 10:59 Acetylcysteine (MUComyst 20% 4ML) 600 mg Q6H PO 07/08/25 13:00 08/07/25 12:59 Albuterol (DUOneb) 1 UDVIAL [id number] IH 07/08/25 18:00 08/07/25 17:59 07/09/25 06:18 2 UDVIAL Azithromycin 250 ml @ 250 mls/hr Q24H IVPB 07/08/25 11:00 07/08/25 11:05 DC Azithromycin 250 ml @ 250 mls/hr Q24H IVPB 07/09/25 11:00 07/19/25 10:59 Cefepime HCl (MAXipime 1 GM vial) 1 gm Q12H IVPB 07/08/25 10:00 07/08/25 11:02 DC 07/08/25 10:29 1 GM Dextrose (D50w) 50 ml AD PRN IV HYPOGLYCEMIA PROTOCOL 07/08/25 18:30 08/07/25 18:29 Dextrose/Sodium Chloride 1,000 ml @ 75 mls/hr [id number] IV 07/08/25 18:30 08/07/25 18:29 07/09/25 07:34 75 MLS/HR Enoxaparin Sodium (Lovenox) 30 mg DAILY SQ 07/09/25 09:00 08/08/25 08:59 07/09/25 08:52 30 MG Famotidine (Pepcid 20mg Vial) 20 mg BID IV 07/08/25 21:00 08/07/25 20:59 07/09/25 07:34 20 MG Glucagon (Glucagon 1mg Kit) 1 mg AD PRN IM HYPOGLYCEMIA PROTOCOL 07/08/25 18:30 08/07/25 18:29 Multivitamins/ Minerals 10 ml/ Folic Acid 1 mg/ Thiamine HCl 100 mg/Sodium Chloride 1,010 ml @ 0 mls/hr DAILY IV 07/09/25 10:30 07/11/25 09:01 Norepinephrine 250 ml @ 21.45 mls/ hr PROTOCOL IV 07/08/25 11:00 07/08/25 11:14 DC Piperacillin Sod/ Tazobactam Sod (Zosyn 3.375gm+NS 50ml) 3.375 gm Q8H IVPB 07/08/25 13:00 07/18/25 12:59 07/09/25 05:02 3.375 GM Potassium Chloride 100 ml @ 100 mls/hr AD PRN IV POTASSIUM PROTOCOL 07/09/25 06:30 08/08/25 06:29 07/09/25 08:51 100 MLS/HR Potassium Chloride (K-Dur/Klor-Con 20meq) 20 meq AD PRN PO POTASSIUM PROTOCOL 07/09/25 06:30 08/08/25 06:29 Potassium Chloride (KCl 10% Elixir 20meq/15ml) 20 meq AD PRN PO POTASSIUM PROTOCOL 07/09/25 06:30 08/08/25 06:29 Sodium Chloride 1,000 ml @ 100 mls/hr Q10H IV 07/08/25 11:30 07/08/25 18:31 DC 07/08/25 12:08 100 MLS/HR Sodium Chloride (NS 50ml) 50 ml AD IV 07/08/25 13:00 07/08/25 11:02 DC DIAGNOSTICS / RADIOLOGY: [ ] ASSESSMENT: Nonresolving multifocal pneumonia in the right lung concerning for aspiration pneumonia Advanced dementia Debility Dehydration Hyperlipidemia History of prostate cancer Hypotension resolved PLAN: the patient has been seen and examined at bedside, case discussed with the RN, no acute events overnight, patient has been admitted to the PCU, the time of my visit the patient resting comfortably in bed, the patient looks malnourished, extremely weak and debilitated, he is getting broad-spectrum IV antibiotics as well as supplemental oxygen via nasal cannula at 3 L, he is currently saturating between 94-98%. BP 111/51. Leukocytosis resolved, WBC today 7.4, hemoglobin 12.4, hematocrit 37.6, with a platelet count of 171, sodium 142, potassium 3.1, BUN of seven, creatinine 0.6, magnesium level of 2.0, procalcitonin 0/19. Serology test to include influenza and SARS antigen are negative. Chest CT tree-in-bud opacities throughout right lung and right lower lobe consultation suspicious for multifocal pneumoniae. Head CT no acute intracranial process, global atrophy with periventricular ischemic white matter changes. X-ray of the abdomen nonspecific gas pattern. Pulmonary consultation requested, we will follow input and recommendation. We will keep the patient on broad-spectrum antibiotics with azithromycin and Zosyn IV, we will check for Streptococcus pneumoniae antigen as well as Legionella antigen. Follow rapid strep. We will start the patient on banana bag for nutritional support. Advanced directive discussed with the was at the bedside as well as the son, they have also spoken with the the patient's daughter, patient has been made DNR/DNI, okay with blood transfusion, no for feeding tubes or the hemodialysis. Prognosis of the patient is guarded. NEURO: Minimize central acting medications as possible. Fall Precautions. Well lighted room through the day and minimize interruptions through the night to prevent acute delirium. PULMONARY: Supplemental 02 as needed BiPAP as necessary, for respiratory distress Titrate Fio2 to keep Spo2 > or = 90% DuoNebs and CPT as needed IS hourly while awake for pulmonary hygiene prn Out of bed to chair as tolerated Maintain aspiration precautions at all times CARDIOVASCULAR: Follow hemodynamics. Vital signs per facility protocol GI & NUTRITION: Continue nutritional support Aspirations precautions Prokinetic agents and laxatives as needed KIDNEYS & ELECTROLYTES: Strict monitoring of intake and output Daily weights Avoid nephrotoxic agents Monitor electrolytes and replace as needed Goal urine output of 30mL/hr or 0.5mL/kg/hr Medications to be dosed according to renal function. Avoid contrast if possible ENDOCRINE: Maintain blood glucose between 100-180 at all times. Insulin sliding scale for blood glucose management Hypoglycemia and hyperglycemia protocol in place INFECTIOUS DISEASE: Trend temperature, WBC and procalcitonin level Follow cultures, deescalate antibiotics as soon as possible. Panculture if new onset fever HEMATOLOGY & COAGULATION: Monitor H&H. Keep Hgb > 7 Transfuse 1 unit of PRBC for Hgb < 7 Transfuse 1 pack of platelets of platelets < 20, 000 Watch for any signs and symptoms of bleeding SKIN: Pressure ulcer prevention per facility protocol Specialty mattress as needed ORTHO/REHAB Continue PT/OT PRN: MEDICATIONS Tylenol 650 mg po every 4 hrs for fever zofran 4 mg IV every 6 hrs for n/v Hydralazine 5 mg IV every 4 hrs systolic pressure > 160 bowel regiment: lactulose 20 gm PO BID PRN constipation Supportive measures: Continue GI and DVT prophylaxis Disposition: Pending improvement in clinical condition All questions answered time spent: > 35 min FRANTZ VIERA MD Jul 09, 2025 10:24
[2025-07-09 10:52] LABS: % IRON SATURATION 14.3 % (30-44); IRON, SERUM 21.0 mcg/dL (65-175)
--- NOTE | 2025-07-09 11:05 | PN ---
[facility] PROGRESS NOTE Date Patient Seen: Jul 09, 2025 Time of Visit: 11:04 Supervising Physician: Hira Luong MD Primary Care Physician: [[facility]ists: [ ] Inpatient Consults: [ ] BIS PROBLEM LIST: Acute metabolic encephalopathy VS CVA Recurrent multifocal pneumonia-failed out patient treatment Advanced dementia Hyperlipidemia Calorie deficit malnutrition Nonverbal Functional quad Bed-bound PLAN SUMMARY: Supplemental oxygen as needed Duo nebs every 6 hours as needed Mucomyst 20% 3 mL q 6 x 72 hours Obtain sputum culture Continue Zosyn Continue azithromycin DC IVF NG tube Tube feedings per dietary recommendations Keep NPO MBSS once more alert Palliative care consult INTERVAL HISTORY: Chart reviewed including all laboratory and imaging results. White count has improved. Now Normal wbc. HH 12.4/37.6 slightly Decreased likely from hydrations. Chemistry unremarkable. Patient assessed at bedside. GCS of 5. He is a DNR and DNI. we will order MRI of the brain to rule out CVA. Hemodynamically stable. No major overnight events reported. Pending speech eval but recommend for pt to be more alert before testing. For now we will start BG tube and tube feedings maintaining aspiration precautions. CT Chest with RT lower lobe consolidation consistent with aspiration pneumonia. Tree-in-bud opacities in right lung, suggestive of infectious bronchiolitis.T race right pleural effusion. REVIEW OF SYSTEMS: unable to obtain due to encephalopathy PHYSICAL EXAM: GENERAL: 69-year-old weak, cachectic, ill-appearing male GCS of 5 HEENT: EOMI, Sclera non icteric, moist mucosa NECK: Supple, no JVD, trachea midline LUNGS: Clear breath sounds bilaterally. No wheezes HEART: Regular rate and rhythm. Normal S1 and S2, without murmurs ABD: Abdomen soft, nontender. Bowel sounds present EXT: No clubbing cyanosis or edema NEURO: GCS of 5 Vital Signs (last 8hr) Date Time Temp Pulse Resp B/P (MAP) Pulse Ox O2 Delivery O2 Flow Rate FiO2 07/09/25 08:00 98.4 94 19 111/51 94 Nasal Cannula 3.0 07/09/25 07:40 98 Nasal Cannula* 2 28 07/09/25 06:19 67 18 07/09/25 06:18 67 18 N/Cannula Low lpm 3.0 32 07/09/25 04:08 97.7 57 16 111/56 100 Nasal Cannula 2.0 LABS: Hematology Labs: Test 07/09/25 05:45 07/08/25 08:50 Range/Units White Blood Count 7.4 # 4.8-10.8 K/uL Red Blood Count 3.96 L 4.50-6.20 MIL/uL Hemoglobin 12.4 L 14.0-18.0 g/dL Hematocrit 37.6 L 42-54 % Mean Corpuscular Volume 94.9 79-99 fL Mean Corpuscular Hemoglobin 31.3 27.0-33.0 pg Mean Corpuscular Hemoglobin Concent 33.0 32.0-36.0 g/dL Red Cell Distribution Width 14.6 11.0-15.5 % Platelet Count 171 # 130-400 K/uL Mean Platelet Volume 10.1 7.5-10.5 fL Nucleated Red Blood Cells 0.0 0.0-0.19 % Immature Granulocyte % (Auto) 0.3 0-1 % Neutrophils (%) (Auto) 79.6 H 40.0-77.0 % Lymphocytes (%) (Auto) 13.7 L 21.0-51.0 % Monocytes (%) (Auto) 6.0 3.0-13.0 % Eosinophils (%) (Auto) 0.2 0.0-8.0 % Basophils (%) (Auto) 0.2 0.0-5.0 % Neutrophils # (Auto) 9.7 H 1.8-7.7 K/uL Lymphocytes # (Auto) 1.7 1.0-4.8 K/uL Monocytes # (Auto) 0.7 0.1-1.0 K/uL Eosinophils # (Auto) 0.03 0.00-0.70 K/uL Basophils # (Auto) 0.02 0.00-0.20 K/uL Absolute Immature Granulocyte (auto 0.04 0-1 K/uL Chemistry Labs: Test 07/09/25 05:45 07/09/25 05:05 07/08/25 11:52 07/08/25 08:50 Range/Units Sodium Level 142 136-145 mmol/L Potassium Level 3.1 L 3.5-5.1 mmol/L Chloride Level 107 101-111 mmol/L Carbon Dioxide Level 31 21-32 mmol/L Blood Urea Nitrogen 7 7-18 mg/dL Creatinine 0.6 0.5-1.3 mg/dL Glomerular Filtration Rate Calc 104 >90 mL/min Random Glucose 99 70-105 mg/dL Total Calcium 8.7 8.5-10.1 mg/dL Phosphorus Level 2.6 2.5-4.9 mg/dL Magnesium Level 2.00 1.80-2.40 mg/dL Iron Level 21 L 65-175 mcg/dL Total Iron Binding Capacity 146 L 250-450 mcg/dL Percent Iron Saturation 14.3 L 30-44 % Whole Blood Glucose 87 70-110 MG/DL Lactic Acid Level 1.4 0.8-2.5 mmol/L C-Reactive Protein, Quantitative 136.10 H 0.5-3.0 mg/L Procalcitonin 0.19 0.05-0.5 ng/mL Thyroid Stimulating Hormone (TSH) 2.30 0.36-3.74 uIU/mL Hemoglobin A1c 5.1 4.0-6.0 % Estimated Average Glucose (eAG) 100 70-126 mg/dL Total Bilirubin 0.9 0.2-1.0 mg/dL Aspartate Amino Transf (AST/SGOT) 25 10-37 U/L Alanine Aminotransferase (ALT/SGPT) 33 12-78 U/L Alkaline Phosphatase 125 50-136 U/L Total Creatine Kinase 55 # 21-232 U/L Troponin I High Sensitivity 9 4-75 ng/L B-Type Natriuretic Peptide 57 0-100 pg/mL Total Protein 8.2 6.0-8.3 g/dL Albumin 3.2 L 3.5-5.0 g/dL Coagulation Labs: Test 07/08/25 08:50 Range/Units D-Dimer Quantitative (PE/DVT) 2023 *H 0-500 ng/mL DIAGNOSTICS / RADIOLOGY RESULTS: [ ][place] [address] [address] IMAGING REPORT Signed PATIENT: WILLY PINEDA MR#: [id number] : 1955 SEX: M AGE: 69 LOCATION: 2AH ORDER [id number] STATUS: ADM IN REPORT#: [id number] SERVICE [id number] REASON: rule out pe ORDERING PHYSICIAN: FRANTZ VIERA MD PROCEDURE: [facility] PE - CT CHEST PE PROTOCOL WWO CONT EXAM: CTA Chest with and without Intravenous Contrast for PE evaluation CLINICAL HISTORY: rule out pe TECHNIQUE: Axial CTA images of the chest with and without intravenous contrast using a pulmonary embolism protocol. Multiplanar reconstructed images were created and reviewed. CONTRAST: was administered without incident. COMPARISON: None provided. FINDINGS: PULMONARY ARTERIES: No evidence of central or segmental pulmonary embolism is seen. AORTA: There is no evidence for aneurysm or dissection of the thoracic aorta. LUNGS: There are a few centrilobular and paraseptal emphysematous changes in both upper lobes. There are a few centrilobular nodules with a tree-in-bud pattern in the posterior segment of the right upper lobe and the superior segment of the right lower lobe. A patch of consolidation in the posterobasal segment of the right lower lobe. PLEURAL SPACES: No pneumothorax evident. Trace right-sided pleural effusion. HEART: Normal heart size. No significant pericardial effusion. LYMPH NODES: No lymphadenopathy is evident. BONES: No focal osseous abnormality or acute fracture. UPPER ABDOMEN: Few gallstones present. Nasogastric tube present with tip within the stomach body. Images of the upper abdomen are unremarkable. IMPRESSION: 1. No pulmonary embolism. 2. Right lower lobe consolidation, likely representing pneumonia. 3. Tree-in-bud opacities in right lung, suggestive of infectious bronchiolitis. 4. Trace right pleural effusion. /[place] DICTATED BY: JENNY MCDANIEL Jr., MD DATE: 07/09/251556 ELECTRONICALLY SIGNED BY: JENNY MCDANIEL Jr., MD DATE: 07/09/251556 PLAN NEURO: Minimize central acting medications as possible. Maintain fall precautions, adequate lighting during the day PULMONARY: Supplemental 02 as needed. Maintain aspiration precautions at all times CARDIOVASCULAR: Follow hemodynamics. Vital signs per facility protocol GI & NUTRITION: Continue with nutritional support. Continue stool softeners and laxatives as needed. KIDNEYS & ELECTROLYTES: Strict monitoring of intake, output and overall fluid balance. Avoid nephrotoxic medications to the extent possible. Medications to be dosed according to renal function. Monitor electrolytes and replace as needed ENDOCRINE: Maintain blood glucose between 100-180 at all times. Hypoglycemia protocol in place INFECTIOUS DISEASE: Trend temperature, WBC and procalcitonin level Follow cultures, deescalate antibiotics as soon as possible. Panculture if new onset fever ONCOLOGY/HEMATOLOGY/COAGULATION: Monitor for s/s of bleeding Monitor hemoglobin, coagulation studies as needed SKIN: Pressure ulcer prevention per facility protocol Specialty mattress ORTHO/REHAB: Continue PT/OT Prophylaxis: Continue GI and DVT prophylaxis Code Status: Full Resuscitation. Palliative care consult Disposition: Critical care time This patient required multiple bedside visits to manage the patient, review blood gases, coordinate with respiratory, nurses, talk to the family members and discuss advanced directives. I personally spent 35 minutes of critical care time in treatment of this patient. This includes patient management, time at bedside, time reviewing tests, labs, appropriate images and studies, documentation, and patient care coordination. This time excludes separately billable procedures. ATTESTATION BY PHYSICIAN I reviewed the documentation, medical decision making, and treatment plan as noted by the mid-level provider above. I agree with the findings and plan of care. Hira Luong MD, NELLY J ARNP Jul 09, 2025 11:05
[2025-07-09 11:13] LABS: ABG BASE EXCESS -0.8 mmol/L (-2.0-3.0); ABG HCO3 23.4 mmol/L (21.0-28.0); ABG OXYGEN SATURATION 99.2 % (94.0-98.0); ABG PCO2 37 mmHg (35-48); ABG PH 7.415 (7.350-7.450); CARBON MONOXIDE 0.3 % (0.5-1.5); PO2, ARTERIAL BG 214.6 mmHg (83.0-108.0); TEMPERATURE, CELSIUS BG 37.0 CELSIUS (35.5-37.0); VENT MODE, BG 3LNC (ROOM AIR)
[2025-07-09] MEDS: AZITHROMYCIN 500MG+NS 250ML 250 ML IVPB SCH (11:36)
--- NOTE | 2025-07-09 11:46 | NUR ---
[facility] Consult: Patient assessed by wound healing team. See wound assessment. Assessment and recommendations provided to primary nurse. Education provided. Addendum: 07/09/25 at 1422 by ELIOT KERN RN RN/ Amended: Links added.
--- NOTE | 2025-07-09 12:00 | NUR ---
NURSING NOTE/NURSING CARE-FLEET ENEMA & NG TUBE FLEET ENEMA GIVEN TO PATIENT. SPOUSE PRESENT IN ROOM. NG TUBE INSERTION PROCEDURE EXPLAINED TO PATIENT'S SPOUSE IN ROOM. PATIENT IS ORIENTED ONLY TO SELF. SP0USE PRESENT IN ROOM. 14 FR NG TUBE INSERTED X 2 ATTEMPTS. PLACEMENT VERIFIED VIA AIR BOLUS.
[2025-07-09] MEDS ORDERED: IOHEXOL-350 75 ML VIAL IV ONE ×2 (12:23→12:24)
--- NOTE | 2025-07-09 12:42 | NUR ---
SW met with and son who were at bedside. stated that daughter was the one who was asking about MPOA and educated sps about the law in [place] naming her (sps) the POA in the event that the pt can not make any medical decision and she stated she understood. Also provider her community resources in the event she needed to consult for any other legal help. Son and her voiced no other concerns
--- NOTE | 2025-07-09 12:45 | NUR ---
SPEECH NOTE: CRITICAL SYSTEMS TECHNICIAN coordinated with nurse Desai. Patient not appropriate for oral intake to meet nutrition/hydration at this time and just had NG tube placed. CRITICAL SYSTEMS TECHNICIAN will follow up within 2-3 days or when status improves. All questions answered. Addendum: 07/09/[address] [facility] HOLLIS Amended: Links added.
--- NOTE | 2025-07-09 13:29 | CONS ---
CONSULTATION NOTE Date of Service: Jul 09, 2025 Reason for Consultation: [ SACRAL ULCER ] Requesting Physician: [ Dr. Fragoso ] HISTORY OF PRESENT ILLNESS: Patient is evaluated at bedside in room 205 for initial wound care evaluation. Patients relatives at bedside during evaluation. The patient is a 69-year-old male with a past medical history of dementia and hyperlipidemia who presented to the hospital secondary to fever, congestion. Patient's daughter noted that he has been having cough for the past two weeks. He was seen by his primary care provider who treated him for pneumonia with po Levaquin. The patient took Levaquin for the past seven days. The patient has been mostly drinking fluids at home. He is not eating solids much at home. Additionally he needs help with his eating. The patient has had progressive decline in his cognition and is being followed by Neurology as outpatient. Labs in the ED were notable for white count of 12.2, hemoglobin was 14.2, platelet count was 237 K, sodium was 134, potassium 3.6, was 0.7, blood glucose was 131, lactic acid was 1.6, troponin was negative x1. The patient underwent a CT chest which showed tree-in-bud opacities throughout the right lung and right lower lobe consolidation concerning for pneumonia. The patient was admitted for further medical evaluation and management. Patient's daughter reports the patient was sitting up in chair for the past several days with little movement. She reports wounds to lower legs started after he developed swelling to lower legs and developed fluid blisters that opened within the last weeks. REVIEW OF SYSTEMS unable to complete pt is nonverbal PAST MEDICAL HISTORY: Hyperlipidemia, dementia, possible prostate cancer PAST SURGICAL HISTORY: History of prostate surgery PAST SOCIAL HISTORY: Denied any smoking, alcohol, drug use. The patient currently lives with his family is who helps him with his ADLs and IADLs FAMILY HISTORY: Denied any pertinent family history Coded Allergies: No Known Allergies (Unverified Allergy, Unknown, 11/09/15) PHYSICAL EXAM EYES: Anicteric. Pupils equal and reactive. HENT: No oral thrush seen, moist Oral mucosa NECK: Supple, no JVD or thyromegaly. LUNGS: Good air entry. No rales, no rhonchi. CARDIOVASCULAR: S1, S2 regular. No murmur heard. ABDOMEN: Soft, non tender, bowel sounds present, no organomegaly CENTRAL NERVOUS SYSTEM: Non verbal, does not follow commands SKIN: Noted with stage II ulcer to coccyx with periwound erythema, venous ulcer to left and right lateral lower legs with 100% eschar noted, unstageable ulcer to bilateral heels and right lateral ankle with eschar tissue noted. LYMPHATICS: No peripheral lymphadenopathy MUSCULOSKELETAL: No joint swelling, erythema or tenderness. EXTREMITIES: No cyanosis or clubbing BACK: No deformity GENITOURINARY: No dysuria or hematuria Vital Sign (Last 24 Hours) 07/09/25 07/09/25 07/09/25 08:00 11:18 11:19 Temp 98.4 Pulse 63 Resp 18 B/P (MAP) 111/51 Pulse Ox 94 O2 Delivery N/Cannula Low lpm O2 Flow Rate 3.0 FiO2 32 Intake & Output (last 24hrs) 07/08/25 07/08/25 07/09/25 15:00 23:00 07:00 Intake Total 300.0 ml 300.0 ml 1000.0 ml Output Total 200 ml 600 ml Balance 300.0 ml 100.0 ml 400.0 ml LABS: Laboratory: Test 07/09/25 11:35 07/09/25 11:10 07/09/25 05:45 07/08/25 11:52 Range/Units Whole Blood Glucose 91 70-110 MG/DL Blood Gas Specimen Type Arterial Arterial Blood pH 7.415 7.350-7.450 Arterial Blood Partial Pressure CO2 37 35-48 mmHg Arterial Blood Partial Pressure O2 214.6 H 83.0-108.0 mmHg Arterial Blood HCO3 23.4 21.0-28.0 mmol/L Arterial Blood Oxygen Saturation 99.2 H 94.0-98.0 % Arterial Blood Base Excess -0.8 -2.0-3.0 mmol/L Hemoglobin (Blood Gas) 12.5 L 13.5-17.5 g/dL Sodium (Blood Gas) 141 136-145 MMOL/L Bedside Potassium (Blood Gas) 3.2 L 3.4-4.5 MMOL/L Bedside Chloride (Blood Gas) 108 H 98-107 MMOL/L Bedside Glucose (Blood Gas) 114 H 65-95 MG/DL Bedside Ionized Calcium (Blood Gas) 1.23 1.15-1.33 MMOL/L Bedside Lactic Acid (Blood Gas) < 0.50 0.36-0.75 MMOL/L Blood Gas Temperature 37.0 35.5-37.0 CELSIUS Blood Gas Flow-by 3.00 0.00-15.00 L/min Blood Gas Vent Mode 3LNC ROOM AIR FiO2 32.0 % Blood Gas Specimen Comment RR PHIL PRODUCT SAFETY TESTER White Blood Count 7.4 # 4.8-10.8 K/uL Red Blood Count 3.96 L 4.50-6.20 MIL/uL Hemoglobin 12.4 L 14.0-18.0 g/dL Hematocrit 37.6 L 42-54 % Mean Corpuscular Volume 94.9 79-99 fL Mean Corpuscular Hemoglobin 31.3 27.0-33.0 pg Mean Corpuscular Hemoglobin Concent 33.0 32.0-36.0 g/dL Red Cell Distribution Width 14.6 11.0-15.5 % Platelet Count 171 # 130-400 K/uL Mean Platelet Volume 10.1 7.5-10.5 fL Nucleated Red Blood Cells 0.0 0.0-0.19 % Sodium Level 142 136-145 mmol/L Potassium Level 3.1 L 3.5-5.1 mmol/L Chloride Level 107 101-111 mmol/L Carbon Dioxide Level 31 21-32 mmol/L Blood Urea Nitrogen 7 7-18 mg/dL Creatinine 0.6 0.5-1.3 mg/dL Glomerular Filtration Rate Calc 104 >90 mL/min Random Glucose 99 70-105 mg/dL Total Calcium 8.7 8.5-10.1 mg/dL Phosphorus Level 2.6 2.5-4.9 mg/dL Magnesium Level 2.00 1.80-2.40 mg/dL Iron Level 21 L 65-175 mcg/dL Total Iron Binding Capacity 146 L 250-450 mcg/dL Percent Iron Saturation 14.3 L 30-44 % Lactic Acid Level 1.4 0.8-2.5 mmol/L C-Reactive Protein, Quantitative 136.10 H 0.5-3.0 mg/L Procalcitonin 0.19 0.05-0.5 ng/mL Thyroid Stimulating Hormone (TSH) 2.30 0.36-3.74 uIU/mL Test 07/08/25 09:36 07/08/25 09:22 07/08/25 08:50 Range/Units Urine Color YELLOW YELLOW Urine Appearance CLOUDY H CLEAR Urine pH 7.0 5.0-8.0 Urine Specific [place] 1.015 1.001-1.031 Urine Protein NEGATIVE NEGATIVE mg/dL Urine Glucose (UA) NEGATIVE NEGATIVE mg/dL Urine Ketones NEGATIVE NEGATIVE mg/dL Urine Occult Blood MODERATE H NEGATIVE Urine Nitrate NEGATIVE NEGATIVE Urine Bilirubin NEGATIVE NEGATIVE mg/dL Urine Urobilinogen 0.2 0.2-1.0 mg/dL Urine Leukocyte Esterase NEGATIVE NEGATIVE Nicholas/uL Urine RBC 26-50 H 0-1 /HPF Urine WBC 2-5 H 0-1 /HPF Urine Bacteria RARE None Seen /HPF Influenza Type A Antigen Negative For Type A NEGATIVE Influenza Type B Antigen Negative For Type B NEGATIVE SARS-CoV-2 Antigen (Rapid) PRESUMPTIVE NEGATIVE NEGATIVE Immature Granulocyte % (Auto) 0.3 0-1 % Neutrophils (%) (Auto) 79.6 H 40.0-77.0 % Lymphocytes (%) (Auto) 13.7 L 21.0-51.0 % Monocytes (%) (Auto) 6.0 3.0-13.0 % Eosinophils (%) (Auto) 0.2 0.0-8.0 % Basophils (%) (Auto) 0.2 0.0-5.0 % Neutrophils # (Auto) 9.7 H 1.8-7.7 K/uL Lymphocytes # (Auto) 1.7 1.0-4.8 K/uL Monocytes # (Auto) 0.7 0.1-1.0 K/uL Eosinophils # (Auto) 0.03 0.00-0.70 K/uL Basophils # (Auto) 0.02 0.00-0.20 K/uL Absolute Immature Granulocyte (auto 0.04 0-1 K/uL D-Dimer Quantitative (PE/DVT) 2023 *H 0-500 ng/mL Hemoglobin A1c 5.1 4.0-6.0 % Estimated Average Glucose (eAG) 100 70-126 mg/dL Total Bilirubin 0.9 0.2-1.0 mg/dL Aspartate Amino Transf (AST/SGOT) 25 10-37 U/L Alanine Aminotransferase (ALT/SGPT) 33 12-78 U/L Alkaline Phosphatase 125 50-136 U/L Total Creatine Kinase 55 # 21-232 U/L Troponin I High Sensitivity 9 4-75 ng/L B-Type Natriuretic Peptide 57 0-100 pg/mL Total Protein 8.2 6.0-8.3 g/dL Albumin 3.2 L 3.5-5.0 g/dL PROBLEM LIST : Medical Problems: Unstageable ulcer to right lateral ankle Unstageable ulcer to right heel Unstageable ulcer to left heel Stage II ulcer to coccyx Chronic venous hypertension with ulcer to bilateral lower legs Non pressure chronic ulcer to left lower leg Non pressure chronic ulcer to right lower leg PLAN: Wound care to left lower leg, right lower leg, right heel, left heel, and right lateral ankle wounds- [place] with Betadine daily Wound care to coccyx- Apply Venelex BID and PRN Apply waffle mattress Apply heel protectors Keep wounds clean and dry Offloading/reposition q 2 hours Comorbidities per primary care team Further Management per hospital course. Thank You for the consult and allowing us to participate in the care of this patient. ATTESTATION BY PHYSICIAN I have seen and examined the patient. I reviewed the documentation, medical decision making, and treatment plan as noted by the mid-level provider above. I agree with the findings and plan of care. WILLY STORM MD, MICHELLE A NP Jul 09, 2025 13:29 WILLY STORM MD Jul 12, 2025 14:30
--- NOTE | 2025-07-09 13:32 | NUR ---
Nutrition consult per TF recs Reviewed labs, notes, and medications. Pt with Dextrose 75 ml/hr Q13H, needs assisted feedings, poor PO POA, NPO, IV abx, K 3.1(L), elevated CRP, A1C 5.1 per chart review. NG tube to be placed, bed bound, wt via bed scale, last BM 07/05/25, coccyx ulcer, mild pitting, severe muscle and fat loss per nursing. TF recs to meet Pt's needs. consider alternate means of group home nutrition. D5W @ 75 ml/hrQ13H provides: 166 kcals. Pt with severe PCM, Supplement thiamin 100 mg/day for 5-7 days + MVI QD for at least 10 days. Start TF rate @ 15 ml/hr for the first 4 hours, increase 5 ml Q2H until you reach goal rate. If residual >500 ml stop TF for 2 hours and then restart if residual continues to be >500 ml stop TF and notify MD. Recommendations: -Provide Jevity 1.5 @ 50 ml/hr x 24 hrs + FWF 200 Q4H Provides: 1800 kcals, 77 gm pro, 2112 ml per day -If bolus provide: 5 cans of Jevity 1.5 (times: 0900,1400, 1900, 0000) 30 ml before and after each feed, 1185 ml by end of day -Monitor BM -If no BM >3 days consider stool softener -Monitor electrolytes -Replenish electrolytes per protocol -Monitor wts -Reweigh as able -Order Vit D, vit b12 labs to rule out deficiencies -Provide MVI QD, vit. C 500 mg BID, zinc 220 mg QD to aid in wound healing -Recommend Pt to follow up with PCP -Monitor TF tolerance + need for TF adjustment -Monitor goals of care RD to follow + available for consult per protocol Addendum: 07/09/25 at [address] Amended: Links added.
--- NOTE | 2025-07-09 14:58 | HMCIMG ---
EXAM: CTA Chest with and without Intravenous Contrast for PE evaluation CLINICAL HISTORY: rule out pe TECHNIQUE: Axial CTA images of the chest with and without intravenous contrast using a pulmonary embolism protocol. Multiplanar reconstructed images were created and reviewed. CONTRAST: was administered without incident. COMPARISON: None provided. FINDINGS: PULMONARY ARTERIES: No evidence of central or segmental pulmonary embolism is seen. AORTA: There is no evidence for aneurysm or dissection of the thoracic aorta. LUNGS: There are a few centrilobular and paraseptal emphysematous changes in both upper lobes. There are a few centrilobular nodules with a tree-in-bud pattern in the posterior segment of the right upper lobe and the superior segment of the right lower lobe. A patch of consolidation in the posterobasal segment of the right lower lobe. PLEURAL SPACES: No pneumothorax evident. Trace right-sided pleural effusion. HEART: Normal heart size. No significant pericardial effusion. LYMPH NODES: No lymphadenopathy is evident. BONES: No focal osseous abnormality or acute fracture. UPPER ABDOMEN: Few gallstones present. Nasogastric tube present with tip within the stomach body. Images of the upper abdomen are unremarkable. IMPRESSION: 1. No pulmonary embolism. 2. Right lower lobe consolidation, likely representing pneumonia. 3. Tree-in-bud opacities in right lung, suggestive of infectious bronchiolitis. 4. Trace right pleural effusion. /[place]
[2025-07-09] MEDS: M.V.I. IV [ADULT] 10 ML, FOLic ACID 5 MG/ML VIAL 1 MG, THIAMINE HCL 100 MG in 0.9%NACL ... IV SCH (15:23)
--- NOTE | 2025-07-09 16:23 | HMCIMG ---
CHEST 1VW REASON: NG TUBE PLACEMENT VERIFICATION COMPARISON: Prior chest radiograph from 07/08/2024 is available. FINDINGS: Single view of the chest was obtained. Lungs are clear. Heart size is normal. There is no pulmonary vascular congestion. Mediastinum and bony thorax appear unremarkable. There is a nasogastric tube with the tip in the stomach. There is mild osteopenia. IMPRESSION: 1. No acute cardiac pulmonary process 2. There is a nasogastric tube with the tip in the stomach.
--- NOTE | 2025-07-09 17:29 | HMCIMG ---
EXAM: MR Brain Without IV contrast. CLINICAL HISTORY: ALTERED MENTAL STATUS TECHNIQUE: Multisequence, multiplanar magnetic resonance images acquired of the brain. Series acquired: 3 - SAG T1 SE - TR: 550.0 - TE: 12.0 - ET: 1.0 - Thk: 5.0 4 - AX T2 FSE - TR: 5959.0 - TE: 100.6 - ET: 24.0 - Thk: 5.0 5 - AX T2 FLAIR - TR: 28589.0 - TE: 95.1 - ET: 16.0 - Thk: 5.0 7 - AX DWI - TR: 4868.0 - TE: 77.1 - ET: 1.0 - Thk: 5.0 8 - AX T2* GRE (TRAUMA OR BLEED) - TR: 516.7 - TE: 10.0 - ET: 1.0 - Thk: 5.0 9 - AX T1 FSE - TR: 490.0 - TE: 9.4 - ET: 3.0 - Thk: 5.0 10 - COR T2 FSE - TR: 6084.0 - TE: 107.1 - ET: 18.0 - Thk: 5.0 700 - APPARENT DIFFUSION COEFFICIENT (MM2/S) - TR: 4868.0 - TE: 77.1 - ET: 1.0 - Thk: 5.0 701 - EXPONENTIAL APPARENT DIFFUSION COEFFICIENT - TR: 4868.0 - TE: 77.1 - ET: 1.0 - Thk: 5.0 CONTRAST: None. COMPARISON: None provided. FINDINGS: BRAIN: No restricted diffusion to indicate acute infarction. No intracranial mass or hemorrhage. Atrophy greater than expected for patient's age No midline shift or extra-axial fluid collection. No sulcal effacement. No cerebellar tonsillar ectopia. The central arterial and venous flow voids are patent. VENTRICLES: No hydrocephalus. ORBITS: The orbits are normal. SINUSES AND MASTOIDS: The sinuses and mastoid air cells are clear. BONES: No focal osseous lesion. IMPRESSION: Atrophy. No acute infarct or hemorrhage /[place]
[2025-07-09] MEDS: BALSAM PERU/CASTOR OIL 60 GM TUBE TP SCH (22:01)
[2025-07-10] VITALS (17 sets, daily range): BP systolic 100–131; BP diastolic 51–71; PULSE 52–98; RESP 16–20; TEMP 97.2–98.8; O2SAT 97–100
[2025-07-10 04:13] LABS: NUCLEATED RED BLOOD CELLS 0.0 % (0.0-0.19); PLATELET COUNT (AUTO) 196.0 K/uL (130-400); RED BLOOD CELL COUNT(AUTO) 3.85 MIL/uL (4.50-6.20); RED CELL DISTRIBUTION WIDTH 14.3 % (11.0-15.5); WHITE BLOOD COUNT (AUTO) 8.8 K/uL (4.8-10.8)
[2025-07-10 04:56] LABS: ASPARTATE AMINOTRANSFERASE 25.0 U/L (10-37); CREATININE 0.3 mg/dL (0.5-1.3); GLOMERULAR FILTR. RATE CALC 128.0 mL/min (>90); GLUCOSE,RANDOM 138.0 mg/dL (70-105); SODIUM SERUM 137.0 mmol/L (136-145); TOTAL PROTEIN, SERUM 6.3 g/dL (6.0-8.3); UREA NITROGEN, BLOOD 3.0 mg/dL (7-18)
[2025-07-10] MEDS: PoTASSium chl 10% ELIXIR 20MEQ 20 MEQ/15 ML UDCUP PO PRN (05:37)
--- NOTE | 2025-07-10 07:37 | HMCIMG ---
EXAMINATION: SPECTRAL DOPPLER ULTRASOUND EXAMINATION OF THE BILATERAL LOWER EXTREMITY VEINS. CLINICAL HISTORY: To rule out DVT. COMPARISON: None provided. TECHNIQUE: Real-time ultrasound scan of the veins of the bilateral lower extremity with color Doppler flow, spectral waveform analysis and compression. FINDINGS: DEEP VEINS: The common femoral, superficial femoral, and popliteal veins are echolucent and compressible. There is normal color Doppler flow throughout. The visualized calf veins appear patent. The right posterior tibial vein is not well visualized. SUPERFICIAL VEINS: The greater saphenous veins are patent and compressible. SOFT TISSUES: No popliteal fossa cyst or other abnormalities. IMPRESSION: No deep venous thrombosis evident in the bilateral lower extremity. No superficial thrombophlebitis in the bilateral lower extremity. /[place]
[2025-07-10] MEDS ORDERED: COMPOUND IV REFRIGERATED 1 EACH IVSOLN MISC PRN (10:00)
--- NOTE | 2025-07-10 10:54 | PN ---
[facility] PROGRESS NOTE Date of Service: Jul 10, 2025 Time of Service: 10:53 SUBJECTIVE: 07/09 the patient has been seen and examined at bedside, case discussed with the RN, no acute events overnight, patient has been admitted to the PCU, the time of my visit the patient resting comfortably in bed, the patient looks malnourished, extremely weak and debilitated, he is getting broad-spectrum IV antibiotics as well as supplemental oxygen via nasal cannula at 3 L, he is currently saturating between 94-98%. BP 111/51. Leukocytosis resolved, WBC today 7.4, hemoglobin 12.4, hematocrit 37.6, with a platelet count of 171, sodium 142, potassium 3.1, BUN of seven, creatinine 0.6, magnesium level of 2.0, procalcitonin 0/19. Serology test to include influenza and SARS antigen are negative. Chest CT tree-in-bud opacities throughout right lung and right lower lobe consultation suspicious for multifocal pneumoniae. Head CT no acute intracranial process, global atrophy with periventricular ischemic white matter changes. X-ray of the abdomen nonspecific gas pattern. Pulmonary consultation requested, we will follow input and recommendation. We will keep the patient on broad-spectrum antibiotics with azithromycin and Zosyn IV, we will check for Streptococcus pneumoniae antigen as well as Legionella antigen. Follow rapid strep. We will start the patient on banana bag for nutritional support. Advanced directive discussed with the was at the bedside as well as the son, they have also spoken with the the patient's daughter, patient has been made DNR/DNI, okay with blood transfusion, no for feeding tubes or the hemodialysis. Prognosis of the patient is guarded. 07/10 patient is seen and examined at bedside, discussed with the RN, no acute events overnight, the patient weak, with failure to thrive, per discussion with the RN, family does not want to pursue any aggressive treatment, they are requesting comfort measures and possible hospice services. Case management consulted to help assist in the discharge process, as the patient will require [facility] hosp[facility] to be discharged home. During my visit the patient more awake today compared to yesterday, getting nutritional support via NG tube. at bedside. REVIEW OF SYSTEMS CONSTITUTIONAL: Denies chills, or night sweats. No unintentional weight loss reported. Positive fevers NEUROLOGICAL: Denies headache, amaurosis fugax, motor weakness, sensory deficit, vertigo/spinning sensation, gait abnormalities, or tremors. ENT: No hearing loss, otalgia, otorrhea, rhinitis, rhinorrhea, hoarseness, or sore throat. CARDIOVASCULAR: Denies any exertional angina, dyspnea on exertion, orthopnea, paroxysmal nocturnal dyspnea, palpitations, life-threatening arrhythmias, claudication. PULMONARY: Positive for cough, congestion GASTROINTESTINAL: Denies any type of dysphagia to either liquids or solids. Denies nausea, vomiting, pyrosis, early satiety, abdominal pain, diarrhea, constipation, or changes in stool consistency or caliber. Denies coffee-ground emesis, hematemesis, hematochezia, or melanotic stools. GENITOURINARY: Denies frequency, urgency, nocturia, hematuria or incontinence (Storage/Irritative symptoms.) Low urinary stream, straining to void, urinary intermittency or hesitancy, splitting of the voiding stream, terminal dribbling. ENDOCRINOLOGIC: Denies polyuria, polydipsia, polyphagia or heat/cold intolerances. HEMATOLOGIC: Denies thrombophilia/previous clots, or coagulopathy/bleeding disorders. ONCOLOGIC: Denies personal history of malignancy. DERMATOLOGIC: Denies rashes or pruritus. PSYCHIATRIC: Denies any suicidal or homicidal ideation. Denies hallucinations. PHYSICAL EXAM GENERAL APPEARANCE: Patient is aphasic. Does not communicate. Looks very malnourished. NEUROLOGICAL: Does not follow commands for accurate neurological assessment. Patient does move his upper and lower extremity without issues. HEENT: Face is symmetric. Pupils are equal and reactive. Extraocular movements are intact. NECK: Supple. No JVD. No thyromegaly. No submental, submandibular, pre- /postauricular, occipital or supraclavicular lymphadenopathy. CHEST: Normal chest expansion. No Telemetry. LUNGS: Absence of any rales, rhonchi or any wheezing. CARDIOVASCULAR: Regular. S1 and S2 normal. No appreciable rubs, murmurs or gallops. ABDOMEN: Soft, nontender, and nondistended. There is no rebound, voluntary guarding, or rigidity. : Deferred. No Aguilar. EXTREMITIES: Non-edematous and not cyanotic. No clubbing. Good capillary refill. SKIN: No skin breakdown. Vital Signs (last 8hr) Date Time Temp Pulse Resp B/P (MAP) Pulse Ox O2 Delivery O2 Flow Rate FiO2 07/10/25 07:18 97.2 60 18 107/62 100 Nasal Cannula 3.0 07/10/25 07:01 52 20 07/10/25 07:01 52 20 N/Cannula Low lpm 2.0 28 07/10/25 03:32 97.2 54 16 128/61 100 Nasal Cannula 2.0 LABS: Laboratory: Test 07/10/25 06:38 07/10/25 05:04 07/10/25 04:02 07/10/25 00:30 Range/Units Group A Streptococcus Rapid negative NEGATIVE Whole Blood Glucose 103 70-110 MG/DL White Blood Count 8.8 4.8-10.8 K/uL Red Blood Count 3.85 L 4.50-6.20 MIL/uL Hemoglobin 12.0 L 14.0-18.0 g/dL Hematocrit 35.4 L 42-54 % Mean Corpuscular Volume 91.9 79-99 fL Mean Corpuscular Hemoglobin 31.2 27.0-33.0 pg Mean Corpuscular Hemoglobin Concent 33.9 32.0-36.0 g/dL Red Cell Distribution Width 14.3 11.0-15.5 % Platelet Count 196 130-400 K/uL Mean Platelet Volume 10.1 7.5-10.5 fL Nucleated Red Blood Cells 0.0 0.0-0.19 % Sodium Level 137 136-145 mmol/L Potassium Level 2.7 *L 3.5-5.1 mmol/L Chloride Level 104 101-111 mmol/L Carbon Dioxide Level 26 21-32 mmol/L Blood Urea Nitrogen 3 L 7-18 mg/dL Creatinine 0.3 L 0.5-1.3 mg/dL Glomerular Filtration Rate Calc 128 >90 mL/min Random Glucose 138 H 70-105 mg/dL Total Calcium 8.6 8.5-10.1 mg/dL Magnesium Level 1.90 1.80-2.40 mg/dL Total Bilirubin 0.5 0.2-1.0 mg/dL Aspartate Amino Transf (AST/SGOT) 25 10-37 U/L Alanine Aminotransferase (ALT/SGPT) 30 12-78 U/L Alkaline Phosphatase 97 50-136 U/L Total Protein 6.3 6.0-8.3 g/dL Albumin 2.3 L 3.5-5.0 g/dL Stool Occult Blood NEGATIVE NEGATIVE Test 07/09/25 11:10 07/09/25 05:45 07/08/25 11:52 Range/Units Blood Gas Specimen Type Arterial Arterial Blood pH 7.415 7.350-7.450 Arterial Blood Partial Pressure CO2 37 35-48 mmHg Arterial Blood Partial Pressure O2 214.6 H 83.0-108.0 mmHg Arterial Blood HCO3 23.4 21.0-28.0 mmol/L Arterial Blood Oxygen Saturation 99.2 H 94.0-98.0 % Arterial Blood Base Excess -0.8 -2.0-3.0 mmol/L Hemoglobin (Blood Gas) 12.5 L 13.5-17.5 g/dL Sodium (Blood Gas) 141 136-145 MMOL/L Bedside Potassium (Blood Gas) 3.2 L 3.4-4.5 MMOL/L Bedside Chloride (Blood Gas) 108 H 98-107 MMOL/L Bedside Glucose (Blood Gas) 114 H 65-95 MG/DL Bedside Ionized Calcium (Blood Gas) 1.23 1.15-1.33 MMOL/L Bedside Lactic Acid (Blood Gas) < 0.50 0.36-0.75 MMOL/L Blood Gas Temperature 37.0 35.5-37.0 CELSIUS Blood Gas Flow-by 3.00 0.00-15.00 L/min Blood Gas Vent Mode 3LNC ROOM AIR FiO2 32.0 % Blood Gas Specimen Comment [employer] Phosphorus Level 2.6 2.5-4.9 mg/dL Iron Level 21 L 65-175 mcg/dL Total Iron Binding Capacity 146 L 250-450 mcg/dL Percent Iron Saturation 14.3 L 30-44 % Lactic Acid Level 1.4 0.8-2.5 mmol/L C-Reactive Protein, Quantitative 136.10 H 0.5-3.0 mg/L Procalcitonin 0.19 0.05-0.5 ng/mL Thyroid Stimulating Hormone (TSH) 2.30 0.36-3.74 uIU/mL Current Medications Medications (Trade) Dose Ordered Sig/Sae Route PRN Reason Start Time Stop Time Status Last Admin Dose Admin Acetaminophen (TYLenol 500MG TAB) 500 mg Q6H PRN PO FEVER/HEADACHE 07/08/25 09:30 08/07/25 09:29 07/08/25 09:47 500 MG Acetaminophen (TYLenol 500MG TAB) 500 mg Q6H PRN PO MILD PAIN (1-3) 07/08/25 11:00 08/07/25 10:59 Acetylcysteine (MUComyst 20% 4ML) 600 mg Q6H PO 07/08/25 13:00 07/09/25 10:53 DC Albuterol (DUOneb) 1 UDVIAL [id number] IH 07/08/25 18:00 08/07/25 17:59 07/10/25 07:00 1 UDVIAL Azithromycin 250 ml @ 250 mls/hr Q24H IVPB 07/08/25 11:00 07/08/25 11:05 DC Azithromycin 250 ml @ 250 mls/hr Q24H IVPB 07/09/25 11:00 07/19/25 10:59 07/09/25 11:36 250 MLS/HR Cefepime HCl (MAXipime 1 GM vial) 1 gm Q12H IVPB 07/08/25 10:00 07/08/25 11:02 DC 07/08/25 10:29 1 GM Dextrose (D50w) 50 ml AD PRN IV HYPOGLYCEMIA PROTOCOL 07/08/25 18:30 08/07/25 18:29 Dextrose/Sodium Chloride 1,000 ml @ 75 mls/hr [id number] IV 07/08/25 18:30 08/07/25 18:29 07/09/25 22:03 75 MLS/HR Enoxaparin Sodium (Lovenox) 30 mg DAILY SQ 07/09/25 09:00 08/08/25 08:59 07/10/25 09:30 30 MG Famotidine (Pepcid 20mg Vial) 20 mg BID IV 07/08/25 21:00 08/07/25 20:59 07/10/25 09:30 20 MG Glucagon (Glucagon 1mg Kit) 1 mg AD PRN IM HYPOGLYCEMIA PROTOCOL 07/08/25 18:30 08/07/25 18:29 Multivitamins/ Minerals 10 ml/ Folic Acid 1 mg/ Thiamine HCl 100 mg/Sodium Chloride 1,010 ml @ 0 mls/hr DAILY IV 07/09/25 10:30 07/11/25 09:01 07/10/25 09:42 75 MLS/HR Norepinephrine 250 ml @ 21.45 mls/ hr PROTOCOL IV 07/08/25 11:00 07/08/25 11:14 DC Piperacillin Sod/ Tazobactam Sod (Zosyn 3.375gm+NS 50ml) 3.375 gm Q8H IVPB 07/08/25 13:00 07/18/25 12:59 07/10/25 05:32 3.375 GM Potassium Chloride 100 ml @ 100 mls/hr AD PRN IV POTASSIUM PROTOCOL 07/09/25 06:30 08/08/25 06:29 07/10/25 05:36 100 MLS/HR Potassium Chloride (K-Dur/Klor-Con 20meq) 20 meq AD PRN PO POTASSIUM PROTOCOL 07/09/25 06:30 08/08/25 06:29 Potassium Chloride (KCl 10% Elixir 20meq/15ml) 20 meq AD PRN PO POTASSIUM PROTOCOL 07/09/25 06:30 08/08/25 06:29 07/10/25 05:37 20 MEQ Sodium Chloride 1,000 ml @ 100 mls/hr Q10H IV 07/08/25 11:30 07/08/25 18:31 DC 07/08/25 12:08 100 MLS/HR Sodium Chloride (NS 50ml) 50 ml AD IV 07/08/25 13:00 07/08/25 11:02 DC Wound Care/ Dressing Products (Venelex Ointment) Ulcer to coccyx APPL... BID TP 07/09/25 21:00 08/08/25 20:59 07/10/25 09:45 60 GM DIAGNOSTICS / RADIOLOGY: [ ] ASSESSMENT: Nonresolving multifocal pneumonia in the right lung concerning for aspiration pneumonia Advanced dementia Debility Dehydration Hyperlipidemia History of prostate cancer Hypotension resolved PLAN: patient is seen and examined at bedside, discussed with the RN, no acute events overnight, the patient weak, with failure to thrive, per discussion with the RN, family does not want to pursue any aggressive treatment, they are requesting comfort measures and possible hospice services. Case management consulted to help assist in the discharge process, as the patient will require [facility] hosp[facility] to be discharged home. NEURO: Minimize central acting medications as possible. Fall Precautions. Well lighted room through the day and minimize interruptions through the night to prevent acute delirium. PULMONARY: Supplemental 02 as needed BiPAP as necessary, for respiratory distress Titrate Fio2 to keep Spo2 > or = 90% DuoNebs and CPT as needed IS hourly while awake for pulmonary hygiene prn Out of bed to chair as tolerated Maintain aspiration precautions at all times CARDIOVASCULAR: Follow hemodynamics. Vital signs per facility protocol GI & NUTRITION: Continue nutritional support Aspirations precautions Prokinetic agents and laxatives as needed KIDNEYS & ELECTROLYTES: Strict monitoring of intake and output Daily weights Avoid nephrotoxic agents Monitor electrolytes and replace as needed Goal urine output of 30mL/hr or 0.5mL/kg/hr Medications to be dosed according to renal function. Avoid contrast if possible ENDOCRINE: Maintain blood glucose between 100-180 at all times. Insulin sliding scale for blood glucose management Hypoglycemia and hyperglycemia protocol in place INFECTIOUS DISEASE: Trend temperature, WBC and procalcitonin level Follow cultures, deescalate antibiotics as soon as possible. Panculture if new onset fever HEMATOLOGY & COAGULATION: Monitor H&H. Keep Hgb > 7 Transfuse 1 unit of PRBC for Hgb < 7 Transfuse 1 pack of platelets of platelets < 20, 000 Watch for any signs and symptoms of bleeding SKIN: Pressure ulcer prevention per facility protocol Specialty mattress as needed ORTHO/REHAB Continue PT/OT PRN: MEDICATIONS Tylenol 650 mg po every 4 hrs for fever zofran 4 mg IV every 6 hrs for n/v Hydralazine 5 mg IV every 4 hrs systolic pressure > 160 bowel regiment: lactulose 20 gm PO BID PRN constipation Supportive measures: Continue GI and DVT prophylaxis Disposition: Pending improvement in clinical condition All questions answered time spent: > 35 min FRANTZ VIERA MD Jul 10, 2025 10:54
--- NOTE | 2025-07-10 11:25 | PN ---
[facility] PROGRESS NOTE Date Patient Seen: Jul 10, 2025 Time of Visit: 11:25 Supervising Physician: Hira Luong MD Primary Care Physician: [[facility] Outpatient Specialists: [ ] Inpatient Consults: [ ] BIS PROBLEM LIST: Acute metabolic encephalopathy, resolving CVA ruled out per MRI Brain Recurrent multifocal pneumonia-failed out patient treatment Advanced dementia Hyperlipidemia Calorie deficit malnutrition Nonverbal Functional quad Bed-bound PLAN SUMMARY: Supplemental oxygen as needed Duo nebs every 6 hours as needed Mucomyst 20% 3 mL q 6 x 72 hours Obtain sputum culture Continue Zosyn Continue azithromycin DC IVF NG tube Tube feedings per dietary recommendations Keep NPO MBSS once more alert Palliative care consult INTERVAL HISTORY: Pt is waking up. GCS 9. Nonverbal with me but awake and alert. He is very fragile and debilitated. and daughter at bedside. He has failed MBSS and is now on NG tube feedings. K= 2.7, covered per protocol as per primary nurse Tahira. Pending speech eval and recs. inquiring of possible hospice. She is leaning towards palliative care but limited resources. CM to follow up He is hemodynamically stable in NAD. and on 2 L via NC. REVIEW OF SYSTEMS: unable to obtain due to encephalopathy PHYSICAL EXAM: GENERAL: 69-year-old weak, cachectic, ill-appearing male GCS of 5 HEENT: EOMI, Sclera non icteric, moist mucosa NECK: Supple, no JVD, trachea midline LUNGS: Clear breath sounds bilaterally. No wheezes HEART: Regular rate and rhythm. Normal S1 and S2, without murmurs ABD: Abdomen soft, nontender. Bowel sounds present EXT: No clubbing cyanosis or edema NEURO: GCS of 5 Vital Signs (last 8hr) Date Time Temp Pulse Resp B/P (MAP) Pulse Ox O2 Delivery O2 Flow Rate FiO2 07/10/25 07:18 97.2 60 18 107/62 100 Nasal Cannula 3.0 07/10/25 07:01 52 20 07/10/25 07:01 52 20 N/Cannula Low lpm 2.0 28 07/10/25 03:32 97.2 54 16 128/61 100 Nasal Cannula 2.0 LABS: Hematology Labs: Test 07/10/25 04:02 Range/Units White Blood Count 8.8 4.8-10.8 K/uL Red Blood Count 3.85 L 4.50-6.20 MIL/uL Hemoglobin 12.0 L 14.0-18.0 g/dL Hematocrit 35.4 L 42-54 % Mean Corpuscular Volume 91.9 79-99 fL Mean Corpuscular Hemoglobin 31.2 27.0-33.0 pg Mean Corpuscular Hemoglobin Concent 33.9 32.0-36.0 g/dL Red Cell Distribution Width 14.3 11.0-15.5 % Platelet Count 196 130-400 K/uL Mean Platelet Volume 10.1 7.5-10.5 fL Nucleated Red Blood Cells 0.0 0.0-0.19 % Chemistry Labs: Test 07/10/25 05:04 07/10/25 04:02 07/09/25 05:45 07/08/25 11:52 Range/Units Whole Blood Glucose 103 70-110 MG/DL Sodium Level 137 136-145 mmol/L Potassium Level 2.7 *L 3.5-5.1 mmol/L Chloride Level 104 101-111 mmol/L Carbon Dioxide Level 26 21-32 mmol/L Blood Urea Nitrogen 3 L 7-18 mg/dL Creatinine 0.3 L 0.5-1.3 mg/dL Glomerular Filtration Rate Calc 128 >90 mL/min Random Glucose 138 H 70-105 mg/dL Total Calcium 8.6 8.5-10.1 mg/dL Magnesium Level 1.90 1.80-2.40 mg/dL Total Bilirubin 0.5 0.2-1.0 mg/dL Aspartate Amino Transf (AST/SGOT) 25 10-37 U/L Alanine Aminotransferase (ALT/SGPT) 30 12-78 U/L Alkaline Phosphatase 97 50-136 U/L Total Protein 6.3 6.0-8.3 g/dL Albumin 2.3 L 3.5-5.0 g/dL Phosphorus Level 2.6 2.5-4.9 mg/dL Iron Level 21 L 65-175 mcg/dL Total Iron Binding Capacity 146 L 250-450 mcg/dL Percent Iron Saturation 14.3 L 30-44 % Lactic Acid Level 1.4 0.8-2.5 mmol/L C-Reactive Protein, Quantitative 136.10 H 0.5-3.0 mg/L Procalcitonin 0.19 0.05-0.5 ng/mL Thyroid Stimulating Hormone (TSH) 2.30 0.36-3.74 uIU/mL DIAGNOSTICS / RADIOLOGY RESULTS: [ ] PLAN NEURO: Minimize central acting medications as possible. Maintain fall precautions, adequate lighting during the day PULMONARY: Supplemental 02 as needed. Maintain aspiration precautions at all times CARDIOVASCULAR: Follow hemodynamics. Vital signs per facility protocol GI & NUTRITION: Continue with nutritional support. Continue stool softeners and laxatives as needed. KIDNEYS & ELECTROLYTES: Strict monitoring of intake, output and overall fluid balance. Avoid nephrotoxic medications to the extent possible. Medications to be dosed according to renal function. Monitor electrolytes and replace as needed ENDOCRINE: Maintain blood glucose between 100-180 at all times. Hypoglycemia protocol in place INFECTIOUS DISEASE: Trend temperature, WBC and procalcitonin level Follow cultures, deescalate antibiotics as soon as possible. Panculture if new onset fever ONCOLOGY/HEMATOLOGY/COAGULATION: Monitor for s/s of bleeding Monitor hemoglobin, coagulation studies as needed SKIN: Pressure ulcer prevention per facility protocol Specialty mattress ORTHO/REHAB: Continue PT/OT Prophylaxis: Continue GI and DVT prophylaxis Code Status: Full Resuscitation. Palliative care consult Disposition: Critical care time This patient required multiple bedside visits to manage the patient, review blood gases, coordinate with respiratory, nurses, talk to the family members and discuss advanced directives. I personally spent 35 minutes of critical care time in treatment of this patient. This includes patient management, time at bedside, time reviewing tests, labs, appropriate images and studies, documentation, and patient care coordination. This time excludes separately billable procedures. ATTESTATION BY PHYSICIAN I reviewed the documentation, medical decision making, and treatment plan as noted by the mid-level provider above. I agree with the findings and plan of care. Jim Ahmadi MD, [facility] Jul 10, 2025 11:25
[2025-07-10] MEDS: AZITHROMYCIN 500MG+NS 250ML 250 ML IVPB SCH (17:00)
[2025-07-10 20:03] LABS: CREATININE 0.3 mg/dL (0.5-1.3); GLOMERULAR FILTR. RATE CALC 128.0 mL/min (>90); GLUCOSE,RANDOM 92.0 mg/dL (70-105); SODIUM SERUM 143.0 mmol/L (136-145); UREA NITROGEN, BLOOD 4.0 mg/dL (7-18)
[2025-07-11] VITALS (15 sets, daily range): BP systolic 106–132; BP diastolic 59–71; PULSE 59–98; RESP 16–20; TEMP 97.6–99.8; O2SAT 94–100
[2025-07-11 04:46] LABS: NUCLEATED RED BLOOD CELLS 0.0 % (0.0-0.19); PLATELET COUNT (AUTO) 197.0 K/uL (130-400); RED BLOOD CELL COUNT(AUTO) 4.2 MIL/uL (4.50-6.20); RED CELL DISTRIBUTION WIDTH 14.1 % (11.0-15.5); WHITE BLOOD COUNT (AUTO) 12.2 K/uL (4.8-10.8)
[2025-07-11 05:07] LABS: ASPARTATE AMINOTRANSFERASE 20.0 U/L (10-37); CREATININE 0.5 mg/dL (0.5-1.3); GLOMERULAR FILTR. RATE CALC 110.0 mL/min (>90); GLUCOSE,RANDOM 136.0 mg/dL (70-105); SODIUM SERUM 141.0 mmol/L (136-145); TOTAL PROTEIN, SERUM 6.6 g/dL (6.0-8.3); UREA NITROGEN, BLOOD 2.0 mg/dL (7-18)
--- NOTE | 2025-07-11 10:21 | NUR ---
Extra dose potassium ordered by MD given via NG vs IV. Patient has PIV. aware.
[2025-07-11] MEDS: MAGNESIUM 2GM PREMIX 50ML 50 ML IV PRN (10:55)
--- NOTE | 2025-07-11 10:56 | PN ---
[facility] PROGRESS NOTE Date of Service: Jul 11, 2025 Time of Service: 10:55 SUBJECTIVE: 07/09 the patient has been seen and examined at bedside, case discussed with the RN, no acute events overnight, patient has been admitted to the PCU, the time of my visit the patient resting comfortably in bed, the patient looks malnourished, extremely weak and debilitated, he is getting broad-spectrum IV antibiotics as well as supplemental oxygen via nasal cannula at 3 L, he is currently saturating between 94-98%. BP 111/51. Leukocytosis resolved, WBC today 7.4, hemoglobin 12.4, hematocrit 37.6, with a platelet count of 171, sodium 142, potassium 3.1, BUN of seven, creatinine 0.6, magnesium level of 2.0, procalcitonin 0/19. Serology test to include influenza and SARS antigen are negative. Chest CT tree-in-bud opacities throughout right lung and right lower lobe consultation suspicious for multifocal pneumoniae. Head CT no acute intracranial process, global atrophy with periventricular ischemic white matter changes. X-ray of the abdomen nonspecific gas pattern. Pulmonary consultation requested, we will follow input and recommendation. We will keep the patient on broad-spectrum antibiotics with azithromycin and Zosyn IV, we will check for Streptococcus pneumoniae antigen as well as Legionella antigen. Follow rapid strep. We will start the patient on banana bag for nutritional support. Advanced directive discussed with the was at the bedside as well as the son, they have also spoken with the the patient's daughter, patient has been made DNR/DNI, okay with blood transfusion, no for feeding tubes or the hemodialysis. Prognosis of the patient is guarded. 07/10 patient is seen and examined at bedside, discussed with the RN, no acute events overnight, the patient weak, with failure to thrive, per discussion with the RN, family does not want to pursue any aggressive treatment, they are requesting comfort measures and possible hospice services. Case management consulted to help assist in the discharge process, as the patient will require [facility] to be discharged home. During my visit the patient more awake today compared to yesterday, getting nutritional support via NG tube. at bedside. 07/11 patient is seen and examined at bedside, case discussed Barrett, no acute events overnight, patient awake, following simple commands, getting nutritional support via NG tube. at bedside during my visit, discussed with the case management, patient to be evaluated by [facility] tomorrow. We will continue to follow. In the meantime we will downgraded the patient to the medical floor. REVIEW OF SYSTEMS CONSTITUTIONAL: Denies chills, or night sweats. No unintentional weight loss reported. Positive fevers NEUROLOGICAL: Denies headache, amaurosis fugax, motor weakness, sensory deficit, vertigo/spinning sensation, gait abnormalities, or tremors. ENT: No hearing loss, otalgia, otorrhea, rhinitis, rhinorrhea, hoarseness, or sore throat. CARDIOVASCULAR: Denies any exertional angina, dyspnea on exertion, orthopnea, paroxysmal nocturnal dyspnea, palpitations, life-threatening arrhythmias, claudication. PULMONARY: Positive for cough, congestion GASTROINTESTINAL: Denies any type of dysphagia to either liquids or solids. Denies nausea, vomiting, pyrosis, early satiety, abdominal pain, diarrhea, constipation, or changes in stool consistency or caliber. Denies coffee-ground emesis, hematemesis, hematochezia, or melanotic stools. GENITOURINARY: Denies frequency, urgency, nocturia, hematuria or incontinence (Storage/Irritative symptoms.) Low urinary stream, straining to void, urinary intermittency or hesitancy, splitting of the voiding stream, terminal dribbling. ENDOCRINOLOGIC: Denies polyuria, polydipsia, polyphagia or heat/cold intolerances. HEMATOLOGIC: Denies thrombophilia/previous clots, or coagulopathy/bleeding disorders. ONCOLOGIC: Denies personal history of malignancy. DERMATOLOGIC: Denies rashes or pruritus. PSYCHIATRIC: Denies any suicidal or homicidal ideation. Denies hallucinations. PHYSICAL EXAM GENERAL APPEARANCE: Patient is aphasic. Does not communicate. Looks very malnourished. NEUROLOGICAL: Does not follow commands for accurate neurological assessment. Patient does move his upper and lower extremity without issues. HEENT: Face is symmetric. Pupils are equal and reactive. Extraocular movements are intact. NECK: Supple. No JVD. No thyromegaly. No submental, submandibular, pre- /postauricular, occipital or supraclavicular lymphadenopathy. CHEST: Normal chest expansion. No Telemetry. LUNGS: Absence of any rales, rhonchi or any wheezing. CARDIOVASCULAR: Regular. S1 and S2 normal. No appreciable rubs, murmurs or gallops. ABDOMEN: Soft, nontender, and nondistended. There is no rebound, voluntary guarding, or rigidity. : Deferred. No Aguilar. EXTREMITIES: Non-edematous and not cyanotic. No clubbing. Good capillary refill. SKIN: No skin breakdown. Vital Signs (last 8hr) Date Time Temp Pulse Resp B/P (MAP) Pulse Ox O2 Delivery O2 Flow Rate FiO2 07/11/25 07:04 62 20 N/Cannula Low lpm 2.0 28 07/11/25 07:00 99.9 93 16 120/71 100 Nasal Cannula 2.0 07/11/25 06:41 61 18 07/11/25 05:00 98.4 98 18 106/67 100 Room Air LABS: Laboratory: Test 07/11/25 06:01 07/11/25 04:38 07/10/25 06:38 07/10/25 00:30 Range/Units Whole Blood Glucose 163 #H 70-110 MG/DL White Blood Count 12.2 H 4.8-10.8 K/uL Red Blood Count 4.20 L 4.50-6.20 MIL/uL Hemoglobin 13.3 L 14.0-18.0 g/dL Hematocrit 39.4 L 42-54 % Mean Corpuscular Volume 93.8 79-99 fL Mean Corpuscular Hemoglobin 31.7 27.0-33.0 pg Mean Corpuscular Hemoglobin Concent 33.8 32.0-36.0 g/dL Red Cell Distribution Width 14.1 11.0-15.5 % Platelet Count 197 130-400 K/uL Mean Platelet Volume 10.0 7.5-10.5 fL Nucleated Red Blood Cells 0.0 0.0-0.19 % Sodium Level 141 136-145 mmol/L Potassium Level 3.1 L 3.5-5.1 mmol/L Chloride Level 105 101-111 mmol/L Carbon Dioxide Level 31 21-32 mmol/L Blood Urea Nitrogen 2 L 7-18 mg/dL Creatinine 0.5 0.5-1.3 mg/dL Glomerular Filtration Rate Calc 110 >90 mL/min Random Glucose 136 H 70-105 mg/dL Total Calcium 8.3 L 8.5-10.1 mg/dL Magnesium Level 1.80 1.80-2.40 mg/dL Total Bilirubin 0.4 0.2-1.0 mg/dL Aspartate Amino Transf (AST/SGOT) 20 10-37 U/L Alanine Aminotransferase (ALT/SGPT) 26 12-78 U/L Alkaline Phosphatase 102 50-136 U/L Total Protein 6.6 6.0-8.3 g/dL Albumin 2.4 L 3.5-5.0 g/dL Group A Streptococcus Rapid negative NEGATIVE Stool Occult Blood NEGATIVE NEGATIVE Test 07/09/25 11:10 Range/Units Blood Gas Specimen Type Arterial Arterial Blood pH 7.415 7.350-7.450 Arterial Blood Partial Pressure CO2 37 35-48 mmHg Arterial Blood Partial Pressure O2 214.6 H 83.0-108.0 mmHg Arterial Blood HCO3 23.4 21.0-28.0 mmol/L Arterial Blood Oxygen Saturation 99.2 H 94.0-98.0 % Arterial Blood Base Excess -0.8 -2.0-3.0 mmol/L Hemoglobin (Blood Gas) 12.5 L 13.5-17.5 g/dL Sodium (Blood Gas) 141 136-145 MMOL/L Bedside Potassium (Blood Gas) 3.2 L 3.4-4.5 MMOL/L Bedside Chloride (Blood Gas) 108 H 98-107 MMOL/L Bedside Glucose (Blood Gas) 114 H 65-95 MG/DL Bedside Ionized Calcium (Blood Gas) 1.23 1.15-1.33 MMOL/L Bedside Lactic Acid (Blood Gas) < 0.50 0.36-0.75 MMOL/L Blood Gas Temperature 37.0 35.5-37.0 CELSIUS Blood Gas Flow-by 3.00 0.00-15.00 L/min Blood Gas Vent Mode 3LNC ROOM AIR FiO2 32.0 % Blood Gas Specimen Comment 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[employer] Current Medications Medications (Trade) Dose Ordered Sig/Sae Route PRN Reason Start Time Stop Time Status Last Admin Dose Admin Acetaminophen (TYLenol 500MG TAB) 500 mg Q6H PRN PO FEVER/HEADACHE 07/08/25 09:30 08/07/25 09:29 07/08/25 09:47 500 MG Acetaminophen (TYLenol 500MG TAB) 500 mg Q6H PRN PO MILD PAIN (1-3) 07/08/25 11:00 08/07/25 10:59 Acetylcysteine (MUComyst 20% 4ML) 600 mg Q6H PO 07/08/25 13:00 07/09/25 10:53 DC Albuterol (DUOneb) 1 UDVIAL [id number] IH 07/08/25 18:00 08/07/25 17:59 07/11/25 06:41 1 UDVIAL Azithromycin 250 ml @ 250 mls/hr Q24H IVPB 07/08/25 11:00 07/08/25 11:05 DC Azithromycin 250 ml @ 250 mls/hr Q24H IVPB 07/09/25 11:00 07/10/25 15:36 DC 07/09/25 11:36 250 MLS/HR Azithromycin 250 ml @ 250 mls/hr Q24H IVPB 07/10/25 17:00 07/20/25 16:59 Cefepime HCl (MAXipime 1 GM vial) 1 gm Q12H IVPB 07/08/25 10:00 07/08/25 11:02 DC 07/08/25 10:29 1 GM Dextrose (D50w) 50 ml AD PRN IV HYPOGLYCEMIA PROTOCOL 07/08/25 18:30 08/07/25 18:29 Dextrose/Sodium Chloride 1,000 ml @ 75 mls/hr [id number] IV 07/08/25 18:30 07/10/25 15:37 DC 07/09/25 22:03 75 MLS/HR Enoxaparin Sodium (Lovenox) 30 mg DAILY SQ 07/09/25 09:00 08/08/25 08:59 07/11/25 10:18 30 MG Famotidine (Pepcid 20mg Vial) 20 mg BID IV 07/08/25 21:00 08/07/25 20:59 07/11/25 10:18 20 MG Glucagon (Glucagon 1mg Kit) 1 mg AD PRN IM HYPOGLYCEMIA PROTOCOL 07/08/25 18:30 08/07/25 18:29 Magnesium Sulfate 50 ml @ 0 mls/hr PROTOCOL PRN IV MAGNESIUM PROTOCOL 07/11/25 11:00 08/10/25 10:59 Multivitamins/ Minerals 10 ml/ Folic Acid 1 mg/ Thiamine HCl 100 mg/Sodium Chloride 1,010 ml @ 0 mls/hr DAILY IV 07/09/25 10:30 07/11/25 09:01 DC 07/11/25 02:31 75 MLS/HR Norepinephrine 250 ml @ 21.45 mls/ hr PROTOCOL IV 07/08/25 11:00 07/08/25 11:14 DC Piperacillin Sod/ Tazobactam Sod (Zosyn 3.375gm+NS 50ml) 3.375 gm Q8H IVPB 07/08/25 13:00 07/18/25 12:59 07/11/25 05:24 3.375 GM Potassium Chloride 100 ml @ 100 mls/hr AD PRN IV POTASSIUM PROTOCOL 07/09/25 06:30 08/08/25 06:29 07/10/25 05:36 100 MLS/HR Potassium Chloride (K-Dur/Klor-Con 20meq) 20 meq AD PRN PO POTASSIUM PROTOCOL 07/09/25 06:30 08/08/25 06:29 Potassium Chloride (KCl 10% Elixir 20meq/15ml) 20 meq AD PRN PO POTASSIUM PROTOCOL 07/09/25 06:30 08/08/25 06:29 07/11/25 10:20 20 MEQ Sodium Chloride 1,000 ml @ 100 mls/hr Q10H IV 07/08/25 11:30 07/08/25 18:31 DC 07/08/25 12:08 100 MLS/HR Sodium Chloride (NS 50ml) 50 ml AD IV 07/08/25 13:00 07/08/25 11:02 DC Wound Care/ Dressing Products (Venelex Ointment) Ulcer to coccyx APPL... BID TP 07/09/25 21:00 08/08/25 20:59 07/11/25 10:20 1 GM DIAGNOSTICS / RADIOLOGY: [ ] ASSESSMENT: Nonresolving multifocal pneumonia in the right lung concerning for aspiration pneumonia Advanced dementia Debility Dehydration Hyperlipidemia History of prostate cancer Hypotension resolved PLAN: patient is seen and examined at bedside, case discussed Solara, no acute events overnight, patient awake, following simple commands, getting nutritional support via NG tube. at bedside during my visit, discussed with the case management, patient to be evaluated by [facility] tomorrow. We will continue to follow. In the meantime we will downgraded the patient to the medical floor. NEURO: Minimize central acting medications as possible. Fall Precautions. Well lighted room through the day and minimize interruptions through the night to prevent acute delirium. PULMONARY: Supplemental 02 as needed BiPAP as necessary, for respiratory distress Titrate Fio2 to keep Spo2 > or = 90% DuoNebs and CPT as needed IS hourly while awake for pulmonary hygiene prn Out of bed to chair as tolerated Maintain aspiration precautions at all times CARDIOVASCULAR: Follow hemodynamics. Vital signs per facility protocol GI & NUTRITION: Continue nutritional support Aspirations precautions Prokinetic agents and laxatives as needed KIDNEYS & ELECTROLYTES: Strict monitoring of intake and output Daily weights Avoid nephrotoxic agents Monitor electrolytes and replace as needed Goal urine output of 30mL/hr or 0.5mL/kg/hr Medications to be dosed according to renal function. Avoid contrast if possible ENDOCRINE: Maintain blood glucose between 100-180 at all times. Insulin sliding scale for blood glucose management Hypoglycemia and hyperglycemia protocol in place INFECTIOUS DISEASE: Trend temperature, WBC and procalcitonin level Follow cultures, deescalate antibiotics as soon as possible. Panculture if new onset fever HEMATOLOGY & COAGULATION: Monitor H&H. Keep Hgb > 7 Transfuse 1 unit of PRBC for Hgb < 7 Transfuse 1 pack of platelets of platelets < 20, 000 Watch for any signs and symptoms of bleeding SKIN: Pressure ulcer prevention per facility protocol Specialty mattress as needed ORTHO/REHAB Continue PT/OT PRN: MEDICATIONS Tylenol 650 mg po every 4 hrs for fever zofran 4 mg IV every 6 hrs for n/v Hydralazine 5 mg IV every 4 hrs systolic pressure > 160 bowel regiment: lactulose 20 gm PO BID PRN constipation Supportive measures: Continue GI and DVT prophylaxis Disposition: Pending improvement in clinical condition All questions answered time spent: > 35 min FRANTZ VIERA MD Jul 11, 2025 10:56
--- NOTE | 2025-07-11 12:00 | PN ---
[facility] PROGRESS NOTE Date Patient Seen: Jul 11, 2025 Time of Visit: 12:00 Supervising Physician: Hira Luong MD Primary Care Physician: [[facility] Specialists: [ ] Inpatient Consults: [ ] BIS PROBLEM LIST: Acute metabolic encephalopathy, resolving CVA ruled out per MRI Brain Recurrent aspiration multifocal pneumonia-failed out patient treatment POA Advanced dementia Hyperlipidemia Calorie deficit malnutrition Nonverbal Functional quad Bed-bound PLAN SUMMARY: Supplemental oxygen as needed Duo nebs every 6 hours as needed Mucomyst 20% 3 mL q 6 x 72 hours Obtain sputum culture Continue Zosyn Continue azithromycin DC IVF NG tube Tube feedings per dietary recommendations Keep NPO MBSS once more alert for tomorrow. Palliative care consult INTERVAL HISTORY: Pt with GCS of 10. Awake and more alert. Continues with NG tube feedings and o2 at 2 L via NC. He is awaiting speech Eval for tomorrow. leaning towards comfort measures awaiting social media content manager for tomorrow for possible [facility]. Per nurse no major overnight events. Continues with IV Zosyn and azithromycin. REVIEW OF SYSTEMS: unable to obtain due to encephalopathy PHYSICAL EXAM: GENERAL: 69-year-old weak, cachectic, ill-appearing male GCS of 10 HEENT: EOMI, Sclera non icteric, moist mucosa NECK: Supple, no JVD, trachea midline LUNGS: Clear breath sounds bilaterally. No wheezes HEART: Regular rate and rhythm. Normal S1 and S2, without murmurs ABD: Abdomen soft, nontender. Bowel sounds present EXT: No clubbing cyanosis or edema NEURO: GCS of 10 Vital Signs (last 8hr) Date Time Temp Pulse Resp B/P (MAP) Pulse Ox O2 Delivery O2 Flow Rate FiO2 07/11/25 07:04 62 20 N/Cannula Low lpm 2.0 07/11/25 07:00 99.9 93 16 120/71 100 Nasal Cannula 2.0 07/11/25 06:41 61 18 07/11/25 05:00 98.4 98 18 106/67 100 Room Air LABS: Hematology Labs: Test 07/11/25 04:38 Range/Units White Blood Count 12.2 H 4.8-10.8 K/uL Red Blood Count 4.20 L 4.50-6.20 MIL/uL Hemoglobin 13.3 L 14.0-18.0 g/dL Hematocrit 39.4 L 42-54 % Mean Corpuscular Volume 93.8 79-99 fL Mean Corpuscular Hemoglobin 31.7 27.0-33.0 pg Mean Corpuscular Hemoglobin Concent 33.8 32.0-36.0 g/dL Red Cell Distribution Width 14.1 11.0-15.5 % Platelet Count 197 130-400 K/uL Mean Platelet Volume 10.0 7.5-10.5 fL Nucleated Red Blood Cells 0.0 0.0-0.19 % Chemistry Labs: Test 07/11/25 11:49 07/11/25 04:38 Range/Units Whole Blood Glucose 107 70-110 MG/DL Sodium Level 141 136-145 mmol/L Potassium Level 3.1 L 3.5-5.1 mmol/L Chloride Level 105 101-111 mmol/L Carbon Dioxide Level 31 21-32 mmol/L Blood Urea Nitrogen 2 L 7-18 mg/dL Creatinine 0.5 0.5-1.3 mg/dL Glomerular Filtration Rate Calc 110 >90 mL/min Random Glucose 136 H 70-105 mg/dL Total Calcium 8.3 L 8.5-10.1 mg/dL Magnesium Level 1.80 1.80-2.40 mg/dL Total Bilirubin 0.4 0.2-1.0 mg/dL Aspartate Amino Transf (AST/SGOT) 20 10-37 U/L Alanine Aminotransferase (ALT/SGPT) 26 12-78 U/L Alkaline Phosphatase 102 50-136 U/L Total Protein 6.6 6.0-8.3 g/dL Albumin 2.4 L 3.5-5.0 g/dL DIAGNOSTICS / RADIOLOGY RESULTS: [place] [id number] [address] IMAGING REPORT Signed PATIENT: WILLY PINEDA MR#: [id number] : 1955 SEX: M AGE: 69 LOCATION: 2AH ORDER 23 STATUS: ADM IN REPORT#: [id number] SERVICE 20 REASON: ALTERED MENTAL STATUS ORDERING PHYSICIAN: PHIL AGRAWAL PROCEDURE: BRAIN WO - MR BRAIN WO CON EXAM: MR Brain Without IV contrast. CLINICAL HISTORY: ALTERED MENTAL STATUS TECHNIQUE: Multisequence, multiplanar magnetic resonance images acquired of the brain. Series acquired: 3 - SAG T1 SE - TR: 550.0 - TE: 12.0 - ET: 1.0 - Thk: 5.0 4 - AX T2 FSE - TR: 5959.0 - TE: 100.6 - ET: 24.0 - Thk: 5.0 5 - AX T2 FLAIR - TR: 22684.0 - TE: 95.1 - ET: 16.0 - Thk: 5.0 7 - AX DWI - TR: 4868.0 - TE: 77.1 - ET: 1.0 - Thk: 5.0 8 - AX T2* GRE (TRAUMA OR BLEED) - TR: 516.7 - TE: 10.0 - ET: 1.0 - Thk: 5.0 9 - AX T1 FSE - TR: 490.0 - TE: 9.4 - ET: 3.0 - Thk: 5.0 10 - COR T2 FSE - TR: 6084.0 - TE: 107.1 - ET: 18.0 - Thk: 5.0 700 - APPARENT DIFFUSION COEFFICIENT (MM2/S) - TR: 4868.0 - TE: 77.1 - ET: 1.0 - Thk: 5.0 701 - EXPONENTIAL APPARENT DIFFUSION COEFFICIENT - TR: 4868.0 - TE: 77.1 - ET: 1.0 - Thk: 5.0 CONTRAST: None. COMPARISON: None provided. FINDINGS: BRAIN: No restricted diffusion to indicate acute infarction. No intracranial mass or hemorrhage. Atrophy greater than expected for patient's age No midline shift or extra-axial fluid collection. No sulcal effacement. No cerebellar tonsillar ectopia. The central arterial and venous flow voids are patent. VENTRICLES: No hydrocephalus. ORBITS: The orbits are normal. SINUSES AND MASTOIDS: The sinuses and mastoid air cells are clear. BONES: No focal osseous lesion. IMPRESSION: Atrophy. No acute infarct or hemorrhage /[place] DICTATED BY: TAVO FOSTER MD DATE: 07/09/251827 ELECTRONICALLY SIGNED BY: TAVO FOSTER MD DATE: 07/09/251827 ] PLAN NEURO: Minimize central acting medications as possible. Maintain fall precautions, adequate lighting during the day PULMONARY: Supplemental 02 as needed. Maintain aspiration precautions at all times CARDIOVASCULAR: Follow hemodynamics. Vital signs per facility protocol GI & NUTRITION: Continue with nutritional support. Continue stool softeners and laxatives as needed. KIDNEYS & ELECTROLYTES: Strict monitoring of intake, output and overall fluid balance. Avoid nephrotoxic medications to the extent possible. Medications to be dosed according to renal function. Monitor electrolytes and replace as needed ENDOCRINE: Maintain blood glucose between 100-180 at all times. Hypoglycemia protocol in place INFECTIOUS DISEASE: Trend temperature, WBC and procalcitonin level Follow cultures, deescalate antibiotics as soon as possible. Panculture if new onset fever ONCOLOGY/HEMATOLOGY/COAGULATION: Monitor for s/s of bleeding Monitor hemoglobin, coagulation studies as needed SKIN: Pressure ulcer prevention per facility protocol Specialty mattress ORTHO/REHAB: Continue PT/OT Prophylaxis: Continue GI and DVT prophylaxis Code Status: Full Resuscitation. Palliative care consult Disposition: ATTESTATION BY PHYSICIAN I reviewed the documentation, medical decision making, and treatment plan as noted by the mid-level provider above. I agree with the findings and plan of care. Hira Luong MD, NELLY J ARNP Jul 11, 2025 12:00
--- NOTE | 2025-07-11 12:39 | NUR ---
Patient being transferred to room 332. Report given to nurse Johnson.
--- NOTE | 2025-07-11 13:03 | NUR ---
RECEIVED PATIENT FROM ICU AT 1300
[2025-07-12] VITALS (12 sets, daily range): BP systolic 93–115; BP diastolic 53–69; PULSE 52–96; RESP 16–19; TEMP 97.5–98.5; O2SAT 92–100
[2025-07-12 04:41] LABS: NUCLEATED RED BLOOD CELLS 0.0 % (0.0-0.19); PLATELET COUNT (AUTO) 189.0 K/uL (130-400); RED BLOOD CELL COUNT(AUTO) 4.04 MIL/uL (4.50-6.20); RED CELL DISTRIBUTION WIDTH 14.1 % (11.0-15.5); WHITE BLOOD COUNT (AUTO) 8.7 K/uL (4.8-10.8)
[2025-07-12 05:15] LABS: ASPARTATE AMINOTRANSFERASE 21.0 U/L (10-37); CREATININE 0.5 mg/dL (0.5-1.3); GLOMERULAR FILTR. RATE CALC 110.0 mL/min (>90); GLUCOSE,RANDOM 132.0 mg/dL (70-105); SODIUM SERUM 140.0 mmol/L (136-145); TOTAL PROTEIN, SERUM 6.7 g/dL (6.0-8.3); UREA NITROGEN, BLOOD 7.0 mg/dL (7-18)
--- NOTE | 2025-07-12 10:33 | NUR ---
SW spoke with who was at bedside about the hospice order. states that she understands that her is "not doing well" and knows what his wishes were and she states that he never wanted "any tubes placed in him". SW educated on hospice services and was agreeable. states that family wants to take pt to daughter's home because daughter will also be assisting in caring for pt. SW to reach out to hospice agencies for a [facility] hospice bed. ZIGGY made contact and faxed clinicals to [facility] at [phone] ([facility]acey[facility] [phone]) for possible assistance
--- NOTE | 2025-07-12 10:58 | PN ---
[facility] PROGRESS NOTE Date Patient Seen: Jul 12, 2025 Time of Visit: 10:54 Supervising Physician: [Dr. Barbara Klein Primary Care Physician: [[facility]: [ ] Inpatient Consults: [ ] BIS PROBLEM LIST: Acute metabolic encephalopathy, resolving CVA ruled out per MRI Brain Recurrent aspiration multifocal pneumonia-failed out patient treatment POA Advanced dementia Hyperlipidemia Calorie deficit malnutrition Nonverbal Functional quad Bed-bound PLAN SUMMARY: Supplemental oxygen as needed Duo nebs every 6 hours as needed Mucomyst 20% 3 mL q 6 x 72 hours Obtain sputum culture Continue Zosyn Continue azithromycin NG tube Tube feedings per dietary recommendations Keep NPO MBSS once more alert for tomorrow. Palliative care consult Prognosis remains guarded Cm to refer to hospice INTERVAL HISTORY: Mr. Alireza Luu is a 69 year old male with a past medical history of dementia, hyperlipidemia presented to the emergency room with a chief complaint of fevers, congestion with an onset of several days. Daughter reports she has been having these symptoms for over2 weeks and was evaluated by his primary care provider and diagnosed and treated him for pneumonia with p.o. Luz. Daughter reports he was compliant with his oral antibiotics and completed the regimen however his symptoms continued. Patient's daughter reports his cough and fevers progressively worsened therefore she brought him in for further evaluation. The patient has been mostly drinking fluids at home. He is not eating solids much at home. Additionally he needs help with his eating. The patient has had progressive decline in his cognition and is being followed by Neurology as outpatient. He sees a neurologist in [facility] in [place]. The patient has episodes of aphasia at home and per daughter sometimes he is also able to speak. He has been having regular bowel movements at home but does have episodes of constipation. Daughter denied any diarrhea, chest pain, nausea, vomiting. Denied any falls, syncopal episode. History is limited since patient is not able to participate in conversations. Patient is seen laying in his stretcher in the ED accompanied by his daughter. Pt appears to be very weak, frail, ill appearing, debilitated and cachectic. CT scan of the chest was reviewed and shows multifocal pneumonia. Recommend continue Zosyn 3.375 g IV every 8 hours as well as azithromycin. We will instruct nursing to arrange aggressive pulmonary tolerating. Recommend keep NPO until evaluated by speech therapy and is deemed safe for intake. Discussed code status with the daughter and she reports she will need to confirm with the family however she is leaning towards duo neb resuscitate which I believe is appropriate at this time. Recommend palliative care consult. No need for ICU at this time. We will continue to follow up with you. 07/11 - Pt with GCS of 10. Awake and more alert. Continues with NG tube feedings and o2 at 2 L via NC. He is awaiting speech Eval for tomorrow. leaning towards comfort measures awaiting social media content manager for tomorrow for [facility]. Per nurse no major overnight events. Continues with IV Zosyn and azithromycin. 07/12 - patient is seen sitting up in bed continues to be weak, ill-appearing, debilitated, cachectic, encephalopathic. Patient does not respond to verbal stimuli however does respond to painful stimuli. Patient continues with NG tube feedings and tolerating well thus far. Patient does not follow simple commands therefore we will not be able to have an and BSS performed. is by his side. Had a long discussion with her regarding his poor prognosis and she is requesting hospice services. We will ask case management to assist as given there financial status they will require hospice services under [facility]. We will continue with current IV Zosyn azithromycin for now. Vital signs are stable. Labs show white count has trended down within normal limits. Prognosis remains guarded. REVIEW OF SYSTEMS: unable to obtain due to encephalopathy PHYSICAL EXAM: GENERAL: 69-year-old weak, cachectic, ill-appearing male GCS of 10 HEENT: EOMI, Sclera non icteric, moist mucosa NECK: Supple, no JVD, trachea midline LUNGS: Clear breath sounds bilaterally. No wheezes HEART: Regular rate and rhythm. Normal S1 and S2, without murmurs ABD: Abdomen soft, nontender. Bowel sounds present EXT: No clubbing cyanosis or edema NEURO: GCS of 10 Vital Signs (last 8hr) Date Time Temp Pulse Resp B/P (MAP) Pulse Ox O2 Delivery O2 Flow Rate FiO2 07/12/25 08:00 97.7 96 17 115/53 100 07/12/25 07:11 71 17 N/Cannula Low lpm 2.0 07/12/25 07:06 71 17 07/12/25 04:22 98.1 60 18 109/57 97 Nasal Cannula LABS: Hematology Labs: Test 07/12/25 04:34 Range/Units White Blood Count 8.7 # 4.8-10.8 K/uL Red Blood Count 4.04 L 4.50-6.20 MIL/uL Hemoglobin 12.6 L 14.0-18.0 g/dL Hematocrit 37.6 L 42-54 % Mean Corpuscular Volume 93.1 79-99 fL Mean Corpuscular Hemoglobin 31.2 27.0-33.0 pg Mean Corpuscular Hemoglobin Concent 33.5 32.0-36.0 g/dL Red Cell Distribution Width 14.1 11.0-15.5 % Platelet Count 189 130-400 K/uL Mean Platelet Volume 9.8 7.5-10.5 fL Nucleated Red Blood Cells 0.0 0.0-0.19 % Chemistry Labs: Test 07/12/25 04:34 07/11/25 11:49 Range/Units Sodium Level 140 136-145 mmol/L Potassium Level 3.9 3.5-5.1 mmol/L Chloride Level 104 101-111 mmol/L Carbon Dioxide Level 28 21-32 mmol/L Blood Urea Nitrogen 7 7-18 mg/dL Creatinine 0.5 0.5-1.3 mg/dL Glomerular Filtration Rate Calc 110 >90 mL/min Random Glucose 132 H 70-105 mg/dL Total Calcium 8.4 L 8.5-10.1 mg/dL Magnesium Level 2.30 1.80-2.40 mg/dL Total Bilirubin 0.4 0.2-1.0 mg/dL Aspartate Amino Transf (AST/SGOT) 21 10-37 U/L Alanine Aminotransferase (ALT/SGPT) 25 12-78 U/L Alkaline Phosphatase 91 50-136 U/L Total Protein 6.7 6.0-8.3 g/dL Albumin 2.4 L 3.5-5.0 g/dL Whole Blood Glucose 107 70-110 MG/DL DIAGNOSTICS / RADIOLOGY RESULTS: [ ] PLAN NEURO: Minimize central acting medications as possible. Maintain fall precautions, adequate lighting during the day PULMONARY: Supplemental 02 as needed. Maintain aspiration precautions at all times CARDIOVASCULAR: Follow hemodynamics. Vital signs per facility protocol GI & NUTRITION: Continue with nutritional support. Continue stool softeners and laxatives as needed. KIDNEYS & ELECTROLYTES: Strict monitoring of intake, output and overall fluid balance. Avoid nephrotoxic medications to the extent possible. Medications to be dosed according to renal function. Monitor electrolytes and replace as needed ENDOCRINE: Maintain blood glucose between 100-180 at all times. Hypoglycemia protocol in place INFECTIOUS DISEASE: Trend temperature, WBC and procalcitonin level Follow cultures, deescalate antibiotics as soon as possible. Panculture if new onset fever ONCOLOGY/HEMATOLOGY/COAGULATION: Monitor for s/s of bleeding Monitor hemoglobin, coagulation studies as needed SKIN: Pressure ulcer prevention per facility protocol Specialty mattress ORTHO/REHAB: Continue PT/OT Prophylaxis: Continue GI and DVT prophylaxis Code Status: Full Resuscitation. Palliative care consult. Recommend hospice Disposition: As per attending ATTESTATION BY PHYSICIAN The patient has been seen and evaluated, the case has been discussed with the DOCUMENT CONTROL SUPERVISOR, I agree with the clinical findings and plan of care. Reynaldo Klein MD, ECTOR N DOCUMENT CONTROL SUPERVISOR Jul 12, 2025 10:57
--- NOTE | 2025-07-12 13:07 | PN ---
[facility] PROGRESS NOTE Date of Service: Jul 12, 2025 Time of Service: 13:05 SUBJECTIVE: 07/09 the patient has been seen and examined at bedside, case discussed with the RN, no acute events overnight, patient has been admitted to the PCU, the time of my visit the patient resting comfortably in bed, the patient looks malnourished, extremely weak and debilitated, he is getting broad-spectrum IV antibiotics as well as supplemental oxygen via nasal cannula at 3 L, he is currently saturating between 94-98%. BP 111/51. Leukocytosis resolved, WBC today 7.4, hemoglobin 12.4, hematocrit 37.6, with a platelet count of 171, sodium 142, potassium 3.1, BUN of seven, creatinine 0.6, magnesium level of 2.0, procalcitonin 0/19. Serology test to include influenza and SARS antigen are negative. Chest CT tree-in-bud opacities throughout right lung and right lower lobe consultation suspicious for multifocal pneumoniae. Head CT no acute intracranial process, global atrophy with periventricular ischemic white matter changes. X-ray of the abdomen nonspecific gas pattern. Pulmonary consultation requested, we will follow input and recommendation. We will keep the patient on broad-spectrum antibiotics with azithromycin and Zosyn IV, we will check for Streptococcus pneumoniae antigen as well as Legionella antigen. Follow rapid strep. We will start the patient on banana bag for nutritional support. Advanced directive discussed with the was at the bedside as well as the son, they have also spoken with the the patient's daughter, patient has been made DNR/DNI, okay with blood transfusion, no for feeding tubes or the hemodialysis. Prognosis of the patient is guarded. 07/10 patient is seen and examined at bedside, discussed with the RN, no acute events overnight, the patient weak, with failure to thrive, per discussion with the RN, family does not want to pursue any aggressive treatment, they are requesting comfort measures and possible hospice services. Case management consulted to help assist in the discharge process, as the patient will require [facility] to be discharged home. During my visit the patient more awake today compared to yesterday, getting nutritional support via NG tube. at bedside. 07/11 patient is seen and examined at bedside, case discussed with the RN, no acute events overnight, patient awake, following simple commands, getting nutritional support via NG tube. at bedside during my visit, discussed with the case management, patient to be evaluated by [facility] tomorrow. We will continue to follow. In the meantime we will downgraded the patient to the medical floor. 07/12 patient is seen and examined at bedside, downgraded to the medical floor, sleeping at the time of my visit, getting nutritional support via NG tube. is at bedside, requesting if the patient can be evaluated to see if he can swallow however I explained to the that speech therapist is unable to evaluate the patient while sleeping. We will await for the patient to wake up, then contact speech therapy for further evaluation to see if we can remove the NG tube. Case management still working of making arrangements for home with the hospice under [facility]. REVIEW OF SYSTEMS CONSTITUTIONAL: Denies chills, or night sweats. No unintentional weight loss reported. Positive fevers NEUROLOGICAL: Denies headache, amaurosis fugax, motor weakness, sensory deficit, vertigo/spinning sensation, gait abnormalities, or tremors. ENT: No hearing loss, otalgia, otorrhea, rhinitis, rhinorrhea, hoarseness, or sore throat. CARDIOVASCULAR: Denies any exertional angina, dyspnea on exertion, orthopnea, paroxysmal nocturnal dyspnea, palpitations, life-threatening arrhythmias, claudication. PULMONARY: Positive for cough, congestion GASTROINTESTINAL: Denies any type of dysphagia to either liquids or solids. Denies nausea, vomiting, pyrosis, early satiety, abdominal pain, diarrhea, constipation, or changes in stool consistency or caliber. Denies coffee-ground emesis, hematemesis, hematochezia, or melanotic stools. GENITOURINARY: Denies frequency, urgency, nocturia, hematuria or incontinence ( Storage/Irritative symptoms.) Low urinary stream, straining to void, urinary intermittency or hesitancy, splitting of the voiding stream, terminal dribbling. ENDOCRINOLOGIC: Denies polyuria, polydipsia, polyphagia or heat/cold intolerances. HEMATOLOGIC: Denies thrombophilia/previous clots, or coagulopathy/bleeding disorders. ONCOLOGIC: Denies personal history of malignancy. DERMATOLOGIC: Denies rashes or pruritus. PSYCHIATRIC: Denies any suicidal or homicidal ideation. Denies hallucinations. PHYSICAL EXAM GENERAL APPEARANCE: Patient is aphasic. Does not communicate. Looks very malnourished. NEUROLOGICAL: Does not follow commands for accurate neurological assessment. Patient does move his upper and lower extremity without issues. HEENT: Face is symmetric. Pupils are equal and reactive. Extraocular movements are intact. NECK: Supple. No JVD. No thyromegaly. No submental, submandibular, pre- /postauricular, occipital or supraclavicular lymphadenopathy. CHEST: Normal chest expansion. No Telemetry. LUNGS: Absence of any rales, rhonchi or any wheezing. CARDIOVASCULAR: Regular. S1 and S2 normal. No appreciable rubs, murmurs or gallops. ABDOMEN: Soft, nontender, and nondistended. There is no rebound, voluntary guarding, or rigidity. : Deferred. No Aguilar. EXTREMITIES: Non-edematous and not cyanotic. No clubbing. Good capillary refill. SKIN: No skin breakdown. Vital Signs (last 8hr) Date Time Temp Pulse Resp B/P (MAP) Pulse Ox O2 Delivery O2 Flow Rate FiO2 07/12/25 11:31 97.7 53 17 109/56 100 Nasal Cannula 2.0 07/12/25 11:22 54 17 N/Cannula Low lpm 2.0 07/12/25 11:18 52 16 07/12/25 08:00 97.7 96 17 115/53 100 07/12/25 07:11 71 17 N/Cannula Low lpm 2.0 07/12/25 07:06 71 17 LABS: Laboratory: Test 07/12/25 04:34 07/11/25 11:49 Range/Units White Blood Count 8.7 # 4.8-10.8 K/uL Red Blood Count 4.04 L 4.50-6.20 MIL/uL Hemoglobin 12.6 L 14.0-18.0 g/dL Hematocrit 37.6 L 42-54 % Mean Corpuscular Volume 93.1 79-99 fL Mean Corpuscular Hemoglobin 31.2 27.0-33.0 pg Mean Corpuscular Hemoglobin Concent 33.5 32.0-36.0 g/dL Red Cell Distribution Width 14.1 11.0-15.5 % Platelet Count 189 130-400 K/uL Mean Platelet Volume 9.8 7.5-10.5 fL Nucleated Red Blood Cells 0.0 0.0-0.19 % Sodium Level 140 136-145 mmol/L Potassium Level 3.9 3.5-5.1 mmol/L Chloride Level 104 101-111 mmol/L Carbon Dioxide Level 28 21-32 mmol/L Blood Urea Nitrogen 7 7-18 mg/dL Creatinine 0.5 0.5-1.3 mg/dL Glomerular Filtration Rate Calc 110 >90 mL/min Random Glucose 132 H 70-105 mg/dL Total Calcium 8.4 L 8.5-10.1 mg/dL Magnesium Level 2.30 1.80-2.40 mg/dL Total Bilirubin 0.4 0.2-1.0 mg/dL Aspartate Amino Transf (AST/SGOT) 21 10-37 U/L Alanine Aminotransferase (ALT/SGPT) 25 12-78 U/L Alkaline Phosphatase 91 50-136 U/L Total Protein 6.7 6.0-8.3 g/dL Albumin 2.4 L 3.5-5.0 g/dL Whole Blood Glucose 107 70-110 MG/DL Current Medications Medications (Trade) Dose Ordered Sig/Sae Route PRN Reason Start Time Stop Time Status Last Admin Dose Admin Acetaminophen (TYLenol 500MG TAB) 500 mg Q6H PRN PO HEADACHE 07/08/25 09:30 08/07/25 09:29 07/08/25 09:47 500 MG Acetaminophen (TYLenol 500MG TAB) 500 mg Q6H PRN PO MILD PAIN (1-3) 07/08/25 11:00 08/07/25 10:59 Acetylcysteine (MUComyst 20% 4ML) 600 mg Q6H PO 07/08/25 13:00 07/09/25 10:53 DC Albuterol (DUOneb) 1 UDVIAL [id number] IH 07/08/25 18:00 08/07/25 17:59 07/12/25 07:06 1 UDVIAL Azithromycin 250 ml @ 250 mls/hr Q24H IVPB 07/08/25 11:00 07/08/25 11:05 DC Azithromycin 250 ml @ 250 mls/hr Q24H IVPB 07/09/25 11:00 07/10/25 15:36 DC 07/09/25 11:36 250 MLS/HR Azithromycin 250 ml @ 250 mls/hr Q24H IVPB 07/10/25 17:00 07/20/25 16:59 07/11/25 17:58 250 MLS/HR Cefepime HCl (MAXipime 1 GM vial) 1 gm Q12H IVPB 07/08/25 10:00 07/08/25 11:02 DC 07/08/25 10:29 1 GM Dextrose (D50w) 50 ml AD PRN IV HYPOGLYCEMIA PROTOCOL 07/08/25 18:30 08/07/25 18:29 Dextrose/Sodium Chloride 1,000 ml @ 75 mls/hr [id number] IV 07/08/25 18:30 07/10/25 15:37 DC 07/09/25 22:03 75 MLS/HR Enoxaparin Sodium (Lovenox) 30 mg DAILY SQ 07/09/25 09:00 08/08/25 08:59 07/12/25 09:14 30 MG Famotidine (Pepcid 20mg Vial) 20 mg BID IV 07/08/25 21:00 08/07/25 20:59 07/12/25 09:14 20 MG Glucagon (Glucagon 1mg Kit) 1 mg AD PRN IM HYPOGLYCEMIA PROTOCOL 07/08/25 18:30 08/07/25 18:29 Magnesium Sulfate 50 ml @ 0 mls/hr PROTOCOL PRN IV MAGNESIUM PROTOCOL 07/11/25 11:00 08/10/25 10:59 07/11/25 10:55 25 MLS/HR Multivitamins/ Minerals 10 ml/ Folic Acid 1 mg/ Thiamine HCl 100 mg/Sodium Chloride 1,010 ml @ 0 mls/hr DAILY IV 07/09/25 10:30 07/11/25 09:01 DC 07/11/25 02:31 75 MLS/HR Norepinephrine 250 ml @ 21.45 mls/ hr PROTOCOL IV 07/08/25 11:00 07/08/25 11:14 DC Piperacillin Sod/ Tazobactam Sod (Zosyn 3.375gm+NS 50ml) 3.375 gm Q8H IVPB 07/08/25 13:00 07/18/25 12:59 07/12/25 04:31 3.375 GM Potassium Chloride 100 ml @ 100 mls/hr AD PRN IV POTASSIUM PROTOCOL 07/09/25 06:30 08/08/25 06:29 07/10/25 05:36 100 MLS/HR Potassium Chloride (K-Dur/Klor-Con 20meq) 20 meq AD PRN PO POTASSIUM PROTOCOL 07/09/25 06:30 08/08/25 06:29 Potassium Chloride (KCl 10% Elixir 20meq/15ml) 20 meq AD PRN PO POTASSIUM PROTOCOL 07/09/25 06:30 08/08/25 06:29 07/11/25 10:20 20 MEQ Sodium Chloride 1,000 ml @ 100 mls/hr Q10H IV 07/08/25 11:30 07/08/25 18:31 DC 07/08/25 12:08 100 MLS/HR Sodium Chloride (NS 50ml) 50 ml AD IV 07/08/25 13:00 07/08/25 11:02 DC Wound Care/ Dressing Products (Venelex Ointment) Ulcer to coccyx APPL... BID TP 07/09/25 21:00 08/08/25 20:59 07/12/25 09:16 1 GM DIAGNOSTICS / RADIOLOGY: [ ] ASSESSMENT: Acute metabolic encephalopathy, resolving CVA ruled out per MRI Brain Recurrent aspiration multifocal pneumonia-failed out patient treatment POA Advanced dementia Hyperlipidemia Calorie deficit malnutrition Nonverbal Functional quad Bed-bound PLAN: patient is seen and examined at bedside, downgraded to the medical floor, sleeping at the time of my visit, getting nutritional support via NG tube. is at bedside, requesting if the patient can be evaluated to see if he can swallow however I explained to the that speech therapist is unable to evaluate the patient while sleeping. We will await for the patient to wake up, then contact speech therapy for further evaluation to see if we can remove the NG tube. Case management still working of making arrangements for home with the hospice under [facility]. NEURO: Minimize central acting medications as possible. Fall Precautions. Well lighted room through the day and minimize interruptions through the night to prevent acute delirium. PULMONARY: Supplemental 02 as needed BiPAP as necessary, for respiratory distress Titrate Fio2 to keep Spo2 > or = 90% DuoNebs and CPT as needed IS hourly while awake for pulmonary hygiene prn Out of bed to chair as tolerated Maintain aspiration precautions at all times CARDIOVASCULAR: Follow hemodynamics. Vital signs per facility protocol GI & NUTRITION: Continue nutritional support Aspirations precautions Prokinetic agents and laxatives as needed KIDNEYS & ELECTROLYTES: Strict monitoring of intake and output Daily weights Avoid nephrotoxic agents Monitor electrolytes and replace as needed Goal urine output of 30mL/hr or 0.5mL/kg/hr Medications to be dosed according to renal function. Avoid contrast if possible ENDOCRINE: Maintain blood glucose between 100-180 at all times. Insulin sliding scale for blood glucose management Hypoglycemia and hyperglycemia protocol in place INFECTIOUS DISEASE: Trend temperature, WBC and procalcitonin level Follow cultures, deescalate antibiotics as soon as possible. Panculture if new onset fever HEMATOLOGY & COAGULATION: Monitor H&H. Keep Hgb > 7 Transfuse 1 unit of PRBC for Hgb < 7 Transfuse 1 pack of platelets of platelets < 20, 000 Watch for any signs and symptoms of bleeding SKIN: Pressure ulcer prevention per facility protocol Specialty mattress as needed ORTHO/REHAB Continue PT/OT PRN: MEDICATIONS Tylenol 650 mg po every 4 hrs for fever zofran 4 mg IV every 6 hrs for n/v Hydralazine 5 mg IV every 4 hrs systolic pressure > 160 bowel regiment: lactulose 20 gm PO BID PRN constipation Supportive measures: Continue GI and DVT prophylaxis Disposition: Pending improvement in clinical condition All questions answered time spent: > 35 min FRANTZ VIERA MD Jul 12, 2025 13:06
--- NOTE | 2025-07-12 13:41 | NUR ---
DCP:[facility] SW received call from [facility] with [facility] stating that pt is accepted however will meet with the family today 07/12/25 at 5pm to complete consents.
--- NOTE | 2025-07-12 13:45 | NUR ---
BEDSIDE SWALLOW EVAL (2nd ATTEMPT) PAINTER MIRROR arrived to patient's room to complete bedside swallow re-evaluation. Pt however unable to wake up to participate in evaluation despite level of cueing and tactile stimulation. Clinician placed pudding on patient's lips; however, no response obtained from patient. PAINTER MIRROR educated patient/family ( and daughter) that patient is at high risk of aspiration if anyone introduces food when patient is not awake and alert. Recommend hospice with comfort measures. Education on s/s of aspiration and thickener use reviewed with patient/family. Pt/family voiced understanding. All questions answered. Addendum: 07/12/[address] [facility] Amended: Links added.
--- NOTE | 2025-07-12 15:23 | NUR ---
HOSPICE FOLLOW UP SW spoke with Stacey from [facility] and family was agreeable to hospice services and family stated that pt will be going to the daughter's home ([address] [place] [address]). Daughter stated that she was going to be working on preparing the room and will try and have it ready THELMA. She is looking to have everything ready by Saturday evening/Saturday morning. SW to follow up with Stacey
[2025-07-12 23:09] LABS: MYCOPLASMA AB IGM <770 U/mL (0-769)
[2025-07-13] VITALS (12 sets, daily range): BP systolic 96–115; BP diastolic 51–69; PULSE 56–89; RESP 17–19; TEMP 97.6–98.9; O2SAT 98–100
[2025-07-13 04:30] LABS: NUCLEATED RED BLOOD CELLS 0.0 % (0.0-0.19); PLATELET COUNT (AUTO) 233.0 K/uL (130-400); RED BLOOD CELL COUNT(AUTO) 4.1 MIL/uL (4.50-6.20); RED CELL DISTRIBUTION WIDTH 14.4 % (11.0-15.5); WHITE BLOOD COUNT (AUTO) 9.1 K/uL (4.8-10.8)
[2025-07-13 04:41] LABS: ASPARTATE AMINOTRANSFERASE 25.0 U/L (10-37); CREATININE 0.5 mg/dL (0.5-1.3); GLOMERULAR FILTR. RATE CALC 110.0 mL/min (>90); GLUCOSE,RANDOM 140.0 mg/dL (70-105); SODIUM SERUM 141.0 mmol/L (136-145); TOTAL PROTEIN, SERUM 7.2 g/dL (6.0-8.3); UREA NITROGEN, BLOOD 9.0 mg/dL (7-18)
--- NOTE | 2025-07-13 09:52 | NUR ---
DC: [facility] ZIGGY followed up with Stacey from [facility] and was advised that DME should be delivered today so pt could potentially go home today. She will inform ZIGGY once all DME has been delivered. # to call report is [phone]
--- NOTE | 2025-07-13 10:53 | PN ---
[facility] PROGRESS NOTE Date Patient Seen: Jul 13, 2025 Time of Visit: 10:52 Supervising Physician: Dr. Ania Whipple Primary Care Physician: [[facility] Outpatient Specialists: [ ] Inpatient Consults: [ ] BIS PROBLEM LIST: Acute metabolic encephalopathy, resolving CVA ruled out per MRI Brain Recurrent aspiration multifocal pneumonia-failed out patient treatment POA Advanced dementia Hyperlipidemia Calorie deficit malnutrition Nonverbal -patient has a functional decline since being admitted to the hospital, prognosis poor and guarded condition, family has a elected hospice -case management arranging placement at hospice Functional quad Bed-bound PLAN SUMMARY: Supplemental oxygen as needed Duo nebs every 6 hours as needed Mucomyst 20% 3 mL q 6 x 72 hours Obtain sputum culture Continue Zosyn Continue azithromycin NG tube Tube feedings per dietary recommendations Keep NPO MBSS, failed test Palliative care consult Prognosis remains guarded Case management arranging placement hospice INTERVAL HISTORY: Mr. Alireza Luu is a 69 year old male with a past medical history of dementia, hyperlipidemia presented to the emergency room with a chief complaint of fevers, congestion with an onset of several days. Daughter reports she has been having these symptoms for over2 weeks and was evaluated by his primary care provider and diagnosed and treated him for pneumonia with p.o. Levaquin. Daughter reports he was compliant with his oral antibiotics and completed the regimen however his symptoms continued. Patient's daughter reports his cough and fevers progressively worsened therefore she brought him in for further evaluation. The patient has been mostly drinking fluids at home. He is not eating solids much at home. Additionally he needs help with his eating. The patient has had progressive decline in his cognition and is being followed by Neurology as outpatient. He sees a neurologist in [facility] in [place]. The patient has episodes of aphasia at home and per daughter sometimes he is also able to speak. He has been having regular bowel movements at home but does have episodes of constipation. Daughter denied any diarrhea, chest pain, nausea, vomiting. Denied any falls, syncopal episode. History is limited since patient is not able to participate in conversations. Patient is seen laying in his stretcher in the ED accompanied by his daughter. Pt appears to be very weak, frail, ill appearing, debilitated and cachectic. CT scan of the chest was reviewed and shows multifocal pneumonia. Recommend continue Zosyn 3.375 g IV every 8 hours as well as azithromycin. We will instruct nursing to arrange aggressive pulmonary tolerating. Recommend keep NPO until evaluated by speech therapy and is deemed safe for intake. Discussed code status with the daughter and she reports she will need to confirm with the family however she is leaning towards duo neb resuscitate which I believe is appropriate at this time. Recommend palliative care consult. No need for ICU at this time. We will continue to follow up with you. 07/11 - Pt with GCS of 10. Awake and more alert. Continues with NG tube feedings and o2 at 2 L via NC. He is awaiting speech Eval for tomorrow. leaning towards comfort measures awaiting [employer] social worker for tomorrow for possible adrrin hospice. Per nurse no major overnight events. Continues with IV Zosyn and azithromycin. 07/12 - patient is seen sitting up in bed continues to be weak, ill-appearing, debilitated, cachectic, encephalopathic. Patient does not respond to verbal stimuli however does respond to painful stimuli. Patient continues with NG tube feedings and tolerating well thus far. Patient does not follow simple commands therefore we will not be able to have an and BSS performed. is by his side. Had a long discussion with her regarding his poor prognosis and she is requesting hospice services. We will ask case management to assist as given there financial status they will require hospice services under darrin. We will continue with current IV Zosyn azithromycin for now. Vital signs are stable. Labs show white count has trended down within normal limits. Prognosis remains guarded. REVIEW OF SYSTEMS: unable to obtain due to encephalopathy PHYSICAL EXAM: GENERAL: 69-year-old weak, cachectic, ill-appearing male GCS of 10 HEENT: EOMI, Sclera non icteric, moist mucosa NECK: Supple, no JVD, trachea midline LUNGS: Shallow rapid respirations, rales and rhonchi present with no stridor. HEART: Regular rate and rhythm. Normal S1 and S2, without murmurs ABD: Abdomen soft, nontender. Bowel sounds present EXT: No clubbing cyanosis or edema NEURO: GCS of 10 Vital Signs (last 8hr) Date Time Temp Pulse Resp B/P (MAP) Pulse Ox O2 Delivery O2 Flow Rate FiO2 07/13/25 08:00 97.5 89 17 106/63 98 Nasal Cannula 2.0 07/13/25 07:06 88 18 N/Cannula Low lpm 1.0 24 9/30/25 07:04 88 18 07/13/25 04:13 99.0 73 19 115/58 100 Room Air LABS: Hematology Labs: Test 07/13/25 04:15 Range/Units White Blood Count 9.1 4.8-10.8 K/uL Red Blood Count 4.10 L 4.50-6.20 MIL/uL Hemoglobin 12.6 L 14.0-18.0 g/dL Hematocrit 38.6 L 42-54 % Mean Corpuscular Volume 94.1 79-99 fL Mean Corpuscular Hemoglobin 30.7 27.0-33.0 pg Mean Corpuscular Hemoglobin Concent 32.6 32.0-36.0 g/dL Red Cell Distribution Width 14.4 11.0-15.5 % Platelet Count 233 130-400 K/uL Mean Platelet Volume 9.9 7.5-10.5 fL Nucleated Red Blood Cells 0.0 0.0-0.19 % Chemistry Labs: Test 07/13/25 04:15 07/11/25 11:49 Range/Units Sodium Level 141 136-145 mmol/L Potassium Level 3.7 3.5-5.1 mmol/L Chloride Level 104 101-111 mmol/L Carbon Dioxide Level 31 21-32 mmol/L Blood Urea Nitrogen 9 7-18 mg/dL Creatinine 0.5 0.5-1.3 mg/dL Glomerular Filtration Rate Calc 110 >90 mL/min Random Glucose 140 H 70-105 mg/dL Total Calcium 9.1 8.5-10.1 mg/dL Magnesium Level 2.30 1.80-2.40 mg/dL Total Bilirubin 0.3 # 0.2-1.0 mg/dL Aspartate Amino Transf (AST/SGOT) 25 10-37 U/L Alanine Aminotransferase (ALT/SGPT) 32 # 12-78 U/L Alkaline Phosphatase 93 50-136 U/L Total Protein 7.2 6.0-8.3 g/dL Albumin 2.6 L 3.5-5.0 g/dL Whole Blood Glucose 107 70-110 MG/DL DIAGNOSTICS / RADIOLOGY RESULTS: [ ] PLAN NEURO: Minimize central acting medications as possible. Maintain fall precautions, adequate lighting during the day PULMONARY: Supplemental 02 as needed. Maintain aspiration precautions at all times CARDIOVASCULAR: Follow hemodynamics. Vital signs per facility protocol GI & NUTRITION: Continue with nutritional support. Continue stool softeners and laxatives as needed. KIDNEYS & ELECTROLYTES: Strict monitoring of intake, output and overall fluid balance. Avoid nephrotoxic medications to the extent possible. Medications to be dosed according to renal function. Monitor electrolytes and replace as needed ENDOCRINE: Maintain blood glucose between 100-180 at all times. Hypoglycemia protocol in place INFECTIOUS DISEASE: Trend temperature, WBC and procalcitonin level Follow cultures, deescalate antibiotics as soon as possible. Panculture if new onset fever ONCOLOGY/HEMATOLOGY/COAGULATION: Monitor for s/s of bleeding Monitor hemoglobin, coagulation studies as needed SKIN: Pressure ulcer prevention per facility protocol Specialty mattress ORTHO/REHAB: Continue PT/OT Prophylaxis: Continue GI and DVT prophylaxis Code Status: Full Resuscitation. Palliative care consult. Recommend hospice Disposition: As per attending CRISTAL BELCHER NP Jul 13, 2025 10:53
[2025-07-13] MEDS ORDERED: CEFD300C3 PO (11:01)
[2025-07-13] MEDS ORDERED: DOXY-466 PO (11:01)
--- NOTE | 2025-07-13 15:15 | NUR ---
[facility] Follow-up: Patient re-assessed by wound healing team. See wound assessment. Assessment and recommendations provided to primary nurse. Education provided to spouse r/t to wound care treatment and pressure ulcer prevention, Addendum: 07/14/25 at 1545 by ELIOT KERN RN RN/ Amended: Links added.
[2025-07-13] MEDS: SCOPOLAMINE HYDROBROMIDE 1 EACH ADH..PATCH TD SCH (16:27)
--- NOTE | 2025-07-13 17:15 | PN ---
PROGRESS NOTE Date of Service: Jul 13, 2025 Time of Service: 17:15 SUBJECTIVE: Patient is evaluated at bedside in room 332 for wound care follow up. Patient is awake, alert, nonverbal. No signs of distress noted. Patient's at bedside during evaluation reports plan for discharge to home today with Hospice. REVIEW OF SYSTEMS unable to complete pt is nonverbal PHYSICAL EXAM EYES: Anicteric. Pupils equal and reactive. HENT: No oral thrush seen, moist Oral mucosa NECK: Supple, no JVD or thyromegaly. LUNGS: Good air entry. No rales, no rhonchi. CARDIOVASCULAR: S1, S2 regular. No murmur heard. ABDOMEN: Soft, non tender, bowel sounds present, no organomegaly CENTRAL NERVOUS SYSTEM: Non verbal, does not follow commands SKIN: Noted with stage II ulcer to coccyx with periwound erythema, venous ulcer to left and right lateral lower legs with 100% eschar noted, unstageable ulcer to bilateral heels and right lateral ankle with eschar tissue noted. LYMPHATICS: No peripheral lymphadenopathy MUSCULOSKELETAL: No joint swelling, erythema or tenderness. EXTREMITIES: No cyanosis or clubbing BACK: No deformity GENITOURINARY: No dysuria or hematuria Vital Signs (last 8hr) Date Time Temp Pulse Resp B/P (MAP) Pulse Ox O2 Delivery O2 Flow Rate FiO2 07/13/25 15:58 99.0 79 17 115/69 100 Nasal Cannula 2.0 07/13/25 11:39 84 18 07/13/25 11:25 98.2 75 17 96/51 95 Nasal Cannula 2.0 LABS: Laboratory: Test 07/13/25 04:15 Range/Units White Blood Count 9.1 4.8-10.8 K/uL Red Blood Count 4.10 L 4.50-6.20 MIL/uL Hemoglobin 12.6 L 14.0-18.0 g/dL Hematocrit 38.6 L 42-54 % Mean Corpuscular Volume 94.1 79-99 fL Mean Corpuscular Hemoglobin 30.7 27.0-33.0 pg Mean Corpuscular Hemoglobin Concent 32.6 32.0-36.0 g/dL Red Cell Distribution Width 14.4 11.0-15.5 % Platelet Count 233 130-400 K/uL Mean Platelet Volume 9.9 7.5-10.5 fL Nucleated Red Blood Cells 0.0 0.0-0.19 % Sodium Level 141 136-145 mmol/L Potassium Level 3.7 3.5-5.1 mmol/L Chloride Level 104 101-111 mmol/L Carbon Dioxide Level 31 21-32 mmol/L Blood Urea Nitrogen 9 7-18 mg/dL Creatinine 0.5 0.5-1.3 mg/dL Glomerular Filtration Rate Calc 110 >90 mL/min Random Glucose 140 H 70-105 mg/dL Total Calcium 9.1 8.5-10.1 mg/dL Magnesium Level 2.30 1.80-2.40 mg/dL Total Bilirubin 0.3 # 0.2-1.0 mg/dL Aspartate Amino Transf (AST/SGOT) 25 10-37 U/L Alanine Aminotransferase (ALT/SGPT) 32 # 12-78 U/L Alkaline Phosphatase 93 50-136 U/L Total Protein 7.2 6.0-8.3 g/dL Albumin 2.6 L 3.5-5.0 g/dL PROBLEM LIST : Medical Problems: Unstageable ulcer to right lateral ankle Unstageable ulcer to right heel Unstageable ulcer to left heel Stage II ulcer to coccyx Chronic venous hypertension with ulcer to bilateral lower legs Non pressure chronic ulcer to left lower leg Non pressure chronic ulcer to right lower leg PLAN: We will Continue wound care to left lower leg, right lower leg, right heel, left heel, and right lateral ankle wounds- Ravenel with Betadine daily We will continue wound care to coccyx- Apply Venelex BID and PRN Apply waffle mattress Apply heel protectors Keep wounds clean and dry Offloading/reposition q 2 hours Comorbidities per primary care team Further Management per hospital course. Thank You for the consult and allowing us to participate in the care of this patient. ATTESTATION BY PHYSICIAN I have seen and examined the patient. I reviewed the documentation, medical decision making, and treatment plan as noted by the mid-level provider above. I agree with the findings and plan of care. WILLY STORM MD, MICHELLE A NP Jul 13, 2025 17:15
--- NOTE | 2025-07-14 09:06 | DS ---
Discharge Summary Hospital Course Summary: Date of service 07/13/2025 Patient admitted to hospital July 08, 2025 with the following history of the present illness: 69-year-old Male with past medical history of dementia, hyperlipidemia presented to the hospital secondary to fever, congestion. History is mainly obtained from daughter who is present at bedside. Patient's daughter noted that she has been having cough for the past two weeks. He was seen by his primary care provider who treated him for pneumonia with Levaquin. The patient took Levaquin for the past seven days. The patient has been mostly drinking fluids at home. He is not eating solids much at home. Additionally he needs help with his eating. The patient has had progressive decline in his cognition and is being followed by Neurology as outpatient. He sees a neurologist in [facility] in [place]. The patient has episodes of aphasia at home and per daughter sometimes he is also able to speak. He has been having regular bowel movements at home but does have episodes of constipation. Daughter denied any diarrhea, chest pain, nausea, vomiting. Denied any falls, syncopal episode. History is limited since patient is not able to participate in conversations. Labs in the ED were notable for white count of 12.2, hemoglobin was 14.2, platelet count was 237 K, sodium was 134, potassium 3.6, was 0.7, blood glucose was 131, lactic acid was 1.6, troponin was negative x1 The patient underwent a CT chest which showed tree-in-bud opacities throughout the right lung and right lower lobe consolidation concerning for pneumonia. Patient's temperature on presentation was 98.1, heart rate was in the 50s, blood pressure was 124/66, patient was saturating 98% on room air, respiratory rate was 20 When seen at bedside patient's systolics were noted to be in the 90s with diastolic in the 30s. The patient's blood pressure subsequently improved with systolics in the 110s after fluid were given. Patient in the ED received cefepime, azithromycin. The patient also received normal saline for fluid bolus HOSPITAL COURSE 07/09 the patient has been seen and examined at bedside, case discussed with the RN, no acute events overnight, patient has been admitted to the PCU, the time of my visit the patient resting comfortably in bed, the patient looks malnourished, extremely weak and debilitated, he is getting broad-spectrum IV antibiotics as well as supplemental oxygen via nasal cannula at 3 L, he is currently saturating between 94-98%. BP 111/51. Leukocytosis resolved, WBC today 7.4, hemoglobin 12.4, hematocrit 37.6, with a platelet count of 171, sodium 142, potassium 3.1, BUN of seven, creatinine 0.6, magnesium level of 2.0, procalcitonin 0/19. Serology test to include influenza and SARS antigen are negative. Chest CT tree-in-bud opacities throughout right lung and right lower lobe consultation suspicious for multifocal pneumoniae. Head CT no acute intracranial process, global atrophy with periventricular ischemic white matter changes. X-ray of the abdomen nonspecific gas pattern. Pulmonary consultation requested, we will follow input and recommendation. We will keep the patient on broad-spectrum antibiotics with azithromycin and Zosyn IV, we will check for Streptococcus pne umoniae antigen as well as Legionella antigen. Follow rapid strep. We will start the patient on banana bag for nutritional support. Advanced directive discussed with the was at the bedside as well as the son, they have also spoken with the the patient's daughter, patient has been made DNR/DNI, okay with blood transfusion, no for feeding tubes or the hemodialysis. Prognosis of the patient is guarded. 07/10 patient is seen and examined at bedside, discussed with the RN, no acute events overnight, the patient weak, with failure to thrive, per discussion with the RN, family does not want to pursue any aggressive treatment, they are requesting comfort measures and possible hospice services. Case management consulted to help assist in the discharge process, as the patient will require [facility] to be discharged home. During my visit the patient more awake today compared to yesterday, getting nutritional support via NG tube. at bedside. 07/11 patient is seen and examined at bedside, case discussed with the RN, no acute events overnight, patient awake, following simple commands, getting nutritional support via NG tube. at bedside during my visit, discussed with the case management, patient to be evaluated by [facility] tomorrow. We will continue to follow. In the meantime we will downgraded the patient to the medical floor. 07/12 patient is seen and examined at bedside, downgraded to the medical floor, sleeping at the time of my visit, getting nutritional support via NG tube. is at bedside, requesting if the patient can be evaluated to see if he can swallow however I explained to the that speech therapist is unable to evaluate the patient while sleeping. We will await for the patient to wake up, then contact speech therapy for further evaluation to see if we can remove the NG tube. Case management still working of making arrangements for home with the hospice under darrin. 07/13 PATIENT IS SEEN AND EXAMINED AT BEDSIDE COMFORTABLY IN BED, NO ACUTE EVENTS OVERNIGHT, DISCUSSED WITH CASE MANAGEMENT, HOME EQUIPMENT HAS BEEN DELIVERED AT HOME TO PROVIDE HOSPICE SERVICES. UPDATED. PHYSICAL EXAM GENERAL APPEARANCE: Patient is aphasic. Does not communicate. Looks very maln ourished. NEUROLOGICAL: Does not follow commands for accurate neurological assessment. Patient does move his upper and lower extremity without issues. HEENT: Face is symmetric. Pupils are equal and reactive. Extraocular movements are intact. NECK: Supple. No JVD. No thyromegaly. No submental, submandibular, pre- /postauricular, occipital or supraclavicular lymphadenopathy. CHEST: Normal chest expansion. No Telemetry. LUNGS: Absence of any rales, rhonchi or any wheezing. CARDIOVASCULAR: Regular. S1 and S2 normal. No appreciable rubs, murmurs or gallops. ABDOMEN: Soft, nontender, and nondistended. There is no rebound, voluntary guarding, or rigidity. : Deferred. No Aguilar. EXTREMITIES: Non-edematous and not cyanotic. No clubbing. Good capillary refill. SKIN: No skin breakdown. Ict Support Technicians(s): [facility] Assessment/Plan: FINAL DIAGNOSIS Acute metabolic encephalopathy, resolving CVA ruled out per MRI Brain Recurrent aspiration multifocal pneumonia-failed out patient treatment POA Advanced dementia Hyperlipidemia Calorie deficit malnutrition Nonverbal Functional quad Bed-bound Discharge Instructions: The patient to be discharged home with hospice services Home Medications: Active Scripts Cefdinir (Cefdinir) 300 Mg Capsule, 1 CAP PO DAILY for 10 Days, #10 CAP 0 Refills Prov:FRANTZ VIERA MD 07/13/25 Doxycycline Monohydrate (Doxycycline Monohydrate) 100 Mg Capsule, 1 CAP PO BID for 10 Days, #20 CAP 0 Refills Prov:FRANTZ VIERA MD 07/13/25 Reported Medications Mirtazapine (Mirtazapine) 15 Mg Tab.rapdis, 1 TAB PO HS for 30 Days, #30 TAB 0 Refills 07/08/25 Rosuvastatin Calcium (Rosuvastatin Calcium) 40 Mg Tablet, 40 MG PO DAILY, TAB 03/18/24 Memantine HCl (Memantine HCl) 10 Mg Tablet, 10 MG PO BID, TAB 03/18/24 Donepezil HCl (Donepezil HCl) 10 Mg Tablet, 10 MG PO DAILY, TAB 03/18/24 Discontinued Reported Medications Folic Acid (Folic Acid) 0.4 Mg Tablet, 1000 MCG PO DAILY, TAB 03/18/24 Cyanocobalamin/Cobamamide (Vitamin B-12 5,000 Mcg Tab Sl) 5,000 Mcg-100 Mcg Tab.subl, 1 EACH SL DAILY, TAB.SL 03/18/24 Thiamine Mononitrate (Vitamin B-1) 100 Mg Tablet, 100 MG PO DAILY, TAB 03/18/24 Cholecalciferol (Vitamin D3) (Vitamin D3) 125 Mcg (5000 Unit) Capsule, 125 MCG PO QWEEK, CAP 03/18/24 Discontinued Scripts Amoxicillin/Potassium Clav (Amox Tr-K Clv 875-125 mg Tab) 875 Mg-125 Mg Tablet, 1 EACH PO BID, #14 TAB Prov:MARBELLA HDZ ETHICS MANAGER 03/20/24 Diltiazem HCl (Diltiazem HCl) 60 Mg Tablet, 30 MG PO Q6H, #60 TAB Prov:MARBELLA HDZ ETHICS MANAGER 03/20/24 Time spent arranging discharge: 31-60 minutes FRANTZ VIERA MD Jul 14, 2025 09:06
== END 2025-07-13 20:35 | disposition hospice, home (50) | DRG 177 ==
LOC: EDH 08:33 → EDHIP 08:34 → 2AH 14:05 → 3AH 07-11 13:00
PROVIDERS: ADMIT Internal Medicine; ATTEND Internal Medicine
DX: J69.0 Pneumonitis due to inhalation of food and vomit (principal); G93.41 Metabolic encephalopathy; R53.2 Functional quadriplegia; E46 Unspecified protein-calorie malnutrition; Z68.1 Body mass index [BMI] 19.9 or less, adult; E78.00 Pure hypercholesterolemia, unspecified; Z20.822 Contact with and (suspected) exposure to COVID-19; E86.0 Dehydration; F03.90 Unspecified dementia, unspecified severity, without behavioral disturbance, psychotic disturbance, mood disturbance, and anxiety; I87.303 Chronic venous hypertension (idiopathic) without complications of bilateral lower extremity; L89.152 Pressure ulcer of sacral region, stage 2; K59.00 Constipation, unspecified; L89.620 Pressure ulcer of left heel, unstageable; L89.610 Pressure ulcer of right heel, unstageable; Z66 Do not resuscitate; I95.9 Hypotension, unspecified; Z74.01 Bed confinement status; Z85.46 Personal history of malignant neoplasm of prostate
CPT/HCPCS: 36415; 36600; 70450; 70551; 71045; 71250; 71270; 74018; 80048; 80053; 81001; 82270; 82435; 82550; 82803; 82947; 82948; 83036; 83540; 83550; 83605; 83735; 83880; 84100; 84132; 84145; 84295; 84443; 84484; 85018; 85025; 85027; 85378; 86140; 86738; 87040; 87426; 87449; 87804; 87880; 92507; 93005; 93970; 94640; 94664; 99285; G0378; J0456; J0692; J1650; J2543; J3411; J3475; J3480; J3490; J7030; Q9967; J1308